=== PATIENT | female | born 1940 | race Caucasian/White ===

== ENCOUNTER → 2017-04-17 | Outpatient (CLI) | payer OTHER ==
[~2017-04-17] MED LIST: ATOR-26 PO; FENO134C2 PO; HYDR25TA5 PO; LOSA25TA18 PO; METO-551 PO; NRV/5 PO; OMEP20CA9 PO
[2017-04-17 08:42] LABS: BASO % 0.5 %; BASO ABS # 0.03 K/uL (0-0.2); COMPLETE YES; EOS % 2.5 %; HEMATOCRIT 33.2 % (37-47); IG% 0.2 %; LYMPH % 48.7 %; LYMPH ABS # 3.06 K/uL (1.2-3.4); MEAN CELL VOLUME 88.5 fL (80-100); MEAN CORPUSCULAR HEMOGLOBIN 30.7 pg (25-34); MEAN CORPUSCULAR HGB CONC 34.6 g/dl (32-36); MEAN PLATELET VOLUME 10.7 fL (7.4-10.4); MONO % 9.7 %; NEUT % 38.4 %; PLATELET COUNT 233 K/uL (130-400); RED BLOOD COUNT 3.75 M/uL (4.2-5.4); WHITE BLOOD COUNT 6.28 K/uL (4.8-10.8)
[2017-04-17 08:57] LABS: ALT/SGPT 22 U/L (12-78); AST/SGOT 13 U/L (15-37); BLOOD UREA NITROGEN 16 mg/dl (7-18); BUN/CREATININE RATIO 21.7 (10-20); CARBON DIOXIDE 27 mmol/L (21-32); CHLORIDE 106 mmol/L (98-107); CHOLESTEROL 146 mg/dl (0-200); CREATININE 0.72 mg/dl (0.60-1.20); GLUCOSE 105 mg/dl (70-99); POTASSIUM 3.7 mmol/L (3.5-5.1); SODIUM 141 mmol/L (136-145); TRIGLYCERIDES 75 mg/dl (0-150); VERY LOW DENSITY LIPOPROT CALC 15 mg/dl
[2017-04-17 08:59] LABS: ALB/GLOB RATIO 1.1 (0.9-2); ALKALINE PHOSPHATASE 49 U/L (45-117); CALCIUM 8.6 mg/dl (8.5-10.1); CHOLESTEROL/HDL RATIO 2.8; HDL CHOLESTEROL 52 mg/dl; LDL CHOLESTEROL CALCULATED 79 mg/dl
[2017-04-17 09:56] LABS: ESTIMATED AVERAGE GLUCOSE 120 mg/dl; HA1C FLAG Normal (Normal)
== END ==
LOC: C.LABCC 08:13
PROVIDERS: ATTEND Internal Medicine
DX: E11.9 Type 2 diabetes mellitus without complications (principal); I10 Essential (primary) hypertension; E78.5 Hyperlipidemia, unspecified

== ENCOUNTER → 2017-08-20 | Outpatient (CLI) | payer OTHER ==
[2017-08-20 08:55] LABS: BASO % 0.4 %; BASO ABS # 0.03 K/uL (0-0.2); COMPLETE YES; EOS % 2.5 %; HEMATOCRIT 33.1 % (37-47); IG% 0.6 %; LYMPH % 41.3 %; LYMPH ABS # 2.99 K/uL (1.2-3.4); MEAN CELL VOLUME 86.4 fL (80-100); MEAN CORPUSCULAR HEMOGLOBIN 30.3 pg (25-34); MEAN PLATELET VOLUME 10.5 fL (7.4-10.4); MONO % 11.2 %; PLATELET COUNT 249 K/uL (130-400); RED BLOOD COUNT 3.83 M/uL (4.2-5.4); WHITE BLOOD COUNT 7.24 K/uL (4.8-10.8)
[2017-08-20 09:02] LABS: BLOOD UREA NITROGEN 12 mg/dl (7-18); BUN/CREATININE RATIO 20.3 (10-20); CALCIUM 9.1 mg/dl (8.5-10.1); CARBON DIOXIDE 27 mmol/L (21-32); CHLORIDE 104 mmol/L (98-107); CREATININE 0.59 mg/dl (0.60-1.20); GLUCOSE 123 mg/dl (70-99); MAGNESIUM 1.8 mg/dl (1.8-2.4); POTASSIUM 3.6 mmol/L (3.5-5.1); SODIUM 140 mmol/L (136-145)
[2017-08-20 09:25] LABS: ESTIMATED AVERAGE GLUCOSE 140 mg/dl; HA1C FLAG Normal (Normal)
== END ==
LOC: C.LABCC 08:32
PROVIDERS: ATTEND Internal Medicine
DX: I10 Essential (primary) hypertension (principal); E11.65 Type 2 diabetes mellitus with hyperglycemia; R63.5 Abnormal weight gain

== ENCOUNTER → 2017-12-22 | Outpatient (CLI) | payer OTHER | LOC: C.LABCC 09:05 | PROVIDERS: ATTEND Internal Medicine | DX: E11.65 Type 2 diabetes mellitus with hyperglycemia (principal) ==

== ENCOUNTER 2021-03-31 02:47 | Inpatient (IN) ==
--- NOTE | 2021-03-31 03:02 | Emergency Department Note ---
Impression & Plan Syncope and collapse, Closed head injury ED Provider Note Name: EVY ALDANA Age: 80 Sex: F Arrives Via: Ambulance Informant: Patient (poor historian), EMS, Nursing ED Provider: Brian Osorio MD Chief Complaint: Syncope Impression: Syncope and Collapse Closed Head Injury Medical Decision Makin yr old female [facility] after reportedly being found unresponsive on the floor after collapse heard by roommate. TTP over posterior right scalp no other acute findings. Patient poor historian, though no reported blood thinner use in the chart. CT head/cervical obtained and negative. CXR/Pelv xray negative. Labs look OK and no evidence of urinary infection. She is not short of breath, no tachy and no hypoxia, with no calf pain/swelling, I have low suspicion of PE. No neuro deficits on arrival to suspect ongoing strok e. With syncope will need further rule out though currently EKG/Trop OK. Hospitalist consulted for further management. Of note, covid 19 testing positive. This patient has already head covid several months ago as well as received both doses of vaccine > 2 months ago. I suspect this is constant positive and not acute infection given no sob, fevers, cough, hypoxia, etc. Prior Medical Record and Triage/Nursing Notes reviewed by Me Additional history obtained from chart and nursing notes Differentials:Vasovagal event, dehydration, infection, hypoglycemia, electrolyte abnormalities, cardiac sources, intracerebral event, pulmonary embolism, seizure, toxicologic, neurologic, as well as other pathologies. Vital Signs: reviewed and remarkable for no significant abnormalities Interventions: None Labs:Reviewed and remarkable for no significant abnormalities Imaging:[facility] Radiologist interpretation reviewed by me: ct head/cervical: No acute findings EKG:Per My Interpretation: Indication Syncope: Sinus Celso 57 bpm, qtc 412. No Ectopy. No Ischemia. Compared to EKG 01/31/16 vague T wave inversions III new. Cardiac/Tele Monitoring: Cardiac Monitoring: An Order was placed for continuous cardiac monitoring. The monitor shows a rate of 60 with a normal sinus rhythm. Consults:Dr Harlan MEMBRENO Hospitalist Plan: Disposition:Hospitalization. Condition: Good History of Present Illness:80 yr old female arrives for evaluation s/p syncope. Patient [facility] where she has been increasingly agitated over the last few days apparently. Tonight she was ambulating around room when fall against the wall striking right side of head. This was reportedly unwitnessed but roommate heard fall and staff contacted. On arrival staff noted patient unresponsive. After sternal rubbing her she eventually awoke and EMS called. Patient notes right headache. Denies neck pain, cp, sob, abdominal pain, extremity pain nor other symptoms. Nothing makes better nor worse. Given Tylenol prior to arrival. No reported aspirin nor blood thinner use. No known bleeding disorder. Patient with dementia and thus history is moderately limited. ROS: See above HPI for pertinent positives & negatives. A total of 10 systems reviewed and were otherwise negative. Past Medical History:HTN, GERD, Dyslipidemia, Dementia, DMII Past Surgical History:Unknown (dementia) Family History:Unknown (dementia) Social History:[facility] Home Medications:see below Allergies:Morphine, Codeine Vitals:Blood Pressure: 204/76, Pulse 62, RR 20, T 36.6C, O2 97% on RA Physical Exam: GENERAL: Patient is elderly appearing and in no acute distress. Slightly confused on history HEAD: TTP without hematoma right posterior scalp EYES: No scleral icterus, unremarkable pupils. ENT: Mucous membranes moist, no nasal congestion. NECK: No masses appreciated, nomeningismus, trachea is midline. RESPIRATORY: No dyspnea. Clear to auscultation and equal bilaterally. No wheeze, no rhonchi. CARDIOVASCULAR: Regular rate and rhythm.No murmurs, rubs, gallops appreciated. GASTROINTESTINAL: Abdomen soft, non-tender, no peritonitis.Bowel sounds positive.No masses appreciated. BACK: No midline tenderness, no CVA tenderness EXTREMITIES: Normal motion all extremities, no cyanosis, no edema. NEUROLOGIC: Alert, dementia, no acute motor or sensory deficits, no focal weakness, cranial nerves grossly intact. SKIN: No rash, no jaundice, no diaphoresis. PSYCH: Appropriate GCS: 15 ED Course: Times/Reassessments: Sleeping soundly. 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 Assistive Devices: None Allergies Allergies Allergy/AdvReac Type Severity Reaction Status Date / Time morphine AdvReac Severe UPSET Verified 03/31/21 03:12 STOMACH codeine AdvReac Mild N/V Verified 03/31/21 03:12 Home Meds Home Medications Medication Instructions Recorded Confirmed acetaminophen 650 mg PO Q12H 03/31/21 03/31/21 acetaminophen 650 mg PO Q6 PRN MDD 3g see 03/31/21 03/31/21 routine order atorvastatin 80 mg PO QPM 03/31/21 03/31/21 fenofibrate nanocrystallized 145 mg PO DAILY 03/31/21 03/31/21 glimepiride 1 mg PO DAILY 03/31/21 03/31/21 losartan 25 mg PO DAILY 03/31/21 03/31/21 metoprolol tartrate 50 mg PO BID 03/31/21 03/31/21 nystatin [Nyamyc] 1 applic TOPICAL QS 03/31/21 03/31/21 omeprazole 20 mg PO BID 03/31/21 03/31/21 pregabalin 75 mg PO BID 03/31/21 03/31/21 valacyclovir 1,000 mg PO TID 03/31/21 03/31/21 Results & Data (ED) Vital Signs Vital Signs - 24 hr 03/31/21 02:50 03/31/21 02:51 03/31/21 04:00 Temperature 36.6 C Temperature Source Temporal Artery Scan Pulse Rate 62 63 58 L Pulse Rate from SpO2 Sensor 59 L 58 L Pulse Rhythm Regular Pulse Strength Normal Respiratory Rate 20 17 14 Respiratory Effort / Characteristics Non-Labored Spontaneous Respiratory Depth Normal Respiratory Pattern Regular Blood Pressure 204/76 H 204/76 H 170/80 H Blood Pressure Mean 118 118 110 Blood Pressure Position Lying Pulse Oximetry 97 99 97 Oxygen Delivery Method Room Air Sepsis Recent Fever Within 48 Hours No Sepsis New/Unexplained Change in Mental Status No Sepsis Action Taken by Nursing No Action Required 03/31/21 04:50 03/31/21 05:09 03/31/21 05:30 Temperature Temperature Source Pulse Rate 48 L 58 L 52 L Pulse Rate from SpO2 Sensor 51 L 58 L 53 L Pulse Rhythm Pulse Strength Respiratory Rate 18 14 16 Respiratory Effort / Characteristics Respiratory Depth Respiratory Pattern Blood Pressure 160/90 H 159/63 H 132/49 L Blood Pressure Mean 113 95 76 Blood Pressure Position Pulse Oximetry 96 97 95 Oxygen Delivery Method Sepsis Recent Fever Within 48 Hours Sepsis New/Unexplained Change in Mental Status Sepsis Action Taken by Nursing 03/31/21 06:01 03/31/21 06:02 03/31/21 06:30 Temperature Temperature Source Pulse Rate 73 83 61 Pulse Rate from SpO2 Sensor 47 L 82 64 Pulse Rhythm Pulse Strength Respiratory Rate 12 20 15 Respiratory Effort / Characteristics Respiratory Depth Respiratory Pattern Blood Pressure 165/81 H 161/74 H Blood Pressure Mean 109 103 Blood Pressure Position Pulse Oximetry 98 98 99 Oxygen Delivery Method Sepsis Recent Fever Within 48 Hours Sepsis New/Unexplained Change in Mental Status Sepsis Action Taken by Nursing 03/31/21 06:31 03/31/21 07:00 03/31/21 07:01 Temperature Temperature Source Pulse Rate 57 L 60 58 L Pulse Rate from SpO2 Sensor 57 L 60 57 L Pulse Rhythm Pulse Strength Respiratory Rate 14 14 15 Respiratory Effort / Characteristics Respiratory Depth Respiratory Pattern Blood Pressure 165/65 H Blood Pressure Mean 98 Blood Pressure Position Pulse Oximetry 97 97 96 Oxygen Delivery Method Sepsis Recent Fever Within 48 Hours Sepsis New/Unexplained Change in Mental Status Sepsis Action Taken by Nursing 03/31/21 07:30 03/31/21 08:00 03/31/21 08:01 Temperature Temperature Source Pulse Rate 54 L 65 70 Pulse Rate from SpO2 Sensor 54 L Pulse Rhythm Pulse Strength Respiratory Rate 16 15 19 Respiratory Effort / Characteristics Respiratory Depth Respiratory Pattern Blood Pressure 161/66 H 176/73 H Blood Pressure Mean 97 107 Blood Pressure Position Pulse Oximetry 96 Oxygen Delivery Method Sepsis Recent Fever Within 48 Hours Sepsis New/Unexplained Change in Mental Status Sepsis Action Taken by Nursing 03/31/21 08:30 Temperature Temperature Source Pulse Rate 58 L Pulse Rate from SpO2 Sensor Pulse Rhythm Pulse Strength Respiratory Rate 16 Respiratory Effort / Characteristics Respiratory Depth Respiratory Pattern Blood Pressure 147/59 H Blood Pressure Mean 88 Blood Pressure Position Pulse Oximetry Oxygen Delivery Method Sepsis Recent Fever Within 48 Hours Sepsis New/Unexplained Change in Mental Status Sepsis Action Taken by Nursing Laboratory Data Result diagrams: 03/31/21 03:52 03/31/21 03:52 Lab Results 03/31/21 03/31/21 03/31/21 Range/Units 03:00 03:00 03:52 WBC Cancelled 7.42 RBC Cancelled 4.03 L Hgb Cancelled 12.0 Hct Cancelled 35.9 L MCV Cancelled 89.1 MCH Cancelled 29.8 MCHC Cancelled 33.4 RDW Std Deviation Cancelled 42.8 RDW Coeff of Batsheva Cancelled 13.2 Plt Count Cancelled 285 MPV Cancelled 10.4 Immature Gran % (Auto) Cancelled 0.5 Neut % (Auto) Cancelled 41.6 Lymph % (Auto) Cancelled 45.8 [place] % (Auto) Cancelled 9.4 Eos % (Auto) Cancelled 2.4 Baso % (Auto) Cancelled 0.3 Neut # (Auto) Cancelled 3.08 Lymph # (Auto) Cancelled 3.40 [place] # (Auto) Cancelled 0.70 H Eos # (Auto) Cancelled 0.18 Baso # (Auto) Cancelled 0.02 Immature Gran # (Auto) Cancelled 0.04 H Absolute Nucleated RBC Cancelled Nucleated RBC % (auto) Cancelled Neutrophils % (Manual) Cancelled Band Neutrophils % Cancelled Lymphocytes % (Manual) Cancelled Prolymphocyte % Cancelled Reactive Lymphs % (Man) Cancelled Monocytes % (Manual) Cancelled Eosinophils % (Manual) Cancelled Basophils % (Manual) Cancelled Metamyelocytes % (Man) Cancelled Myelocytes % (Man) Cancelled Promyelocytes % (Man) Cancelled Blast Cells % (Manual) Cancelled Plasma Cell % (Manual) Cancelled Other Cells % Cancelled Nucleated RBC % Cancelled Neutrophils # (Manual) Cancelled Band Neutrophils # Cancelled Total Absolute Neuts Cancelled Lymphocytes # (Manual) Cancelled Prolymphocyte # Cancelled Reactive Lymphs # Cancelled Total Abs Lymphocytes Cancelled Monocytes # (Manual) Cancelled Eosinophils # (Manual) Cancelled Basophils # (Manual) Cancelled Metamyelocytes # (Man) Cancelled Myelocytes # (Manual) Cancelled Promyelocytes # (Man) Cancelled Blast Cells # (Man) Cancelled Plasma Cell # (Manual) Cancelled Other Cells # Cancelled Nucleated RBCs # (Man) Cancelled Hypersegmented Neuts Cancelled Hyposegmented Neuts Cancelled Hypogranular Neuts Cancelled Large Granular Lymphs Cancelled # Lrg Granular Lymphs Cancelled Hairy Cells Cancelled Smudge Cells Cancelled Toxic Granulation Cancelled Toxic Vacuolation Cancelled Dohle Bodies Cancelled Steven Rods Cancelled Platelet Estimate Cancelled Hypogranular Platelets Cancelled Clumped Platelets Cancelled Giant Platelets Cancelled Platelet Satelliting Cancelled RBC Morphology Cancelled Polychromasia Cancelled Hypochromasia Cancelled Poikilocytosis Cancelled Basophilic Stippling Cancelled Anisocytosis Cancelled Microcytosis Cancelled Macrocytosis Cancelled Spherocytes Cancelled Pappenheimer Bodies Cancelled Sickle Cells Cancelled Target Cells Cancelled Tear Drop Cells Cancelled Ovalocytes Cancelled Stomatocytes Cancelled [place] Bodies Cancelled Echinocytes Cancelled Acanthocytes (Spur) Cancelled Rouleaux Cancelled RBC Agglutinates Cancelled Schistocytes Cancelled RBC Morph Comment Cancelled Sezary Cell Cancelled Sodium 141 (136-145) mmol/L Potassium (3.5-5.1) mmol/L Chloride 110 H (98-107) mmol/L Carbon Dioxide 25 (21-32) mmol/L Anion Gap 6.0 (3-11) BUN 19 H (7-18) mg/dl Creatinine 0.82 (0.6-1.2) mg/dl Est Cr Clr Drug Dosing 50.1 ml/min Est GFR ( Amer) 77.2 ml/min Est GFR (Non-Af Amer) 66.6 ml/min BUN/Creatinine Ratio 22.9 H (10-20) Glucose 127 H (70-99) mg/dl Calcium 9.1 (8.5-10.1) mg/dl Magnesium (1.8-2.4) mg/dl Total Bilirubin 0.4 (0.2-1) mg/dl Direct Bilirubin (0-0.2) mg/dl AST (15-37) U/L ALT 25 (12-78) U/L Alkaline Phosphatase 55 (45-117) U/L Troponin I < 0.015 (0-0.045) ng/ml Total Protein 7.5 (6.4-8.2) gm/dl Albumin 3.5 (3.4-5.0) gm/dl Lipase 122 (73-393) U/L Urine Color Urine Appearance (Clear) Urine pH (4.5-7.5) Ur Specific [place] (1.000-1.030) Urine Protein (Negative) Urine Glucose (UA) (Negative) Urine Ketones (Negative) Urine Blood (Negative) Urine Nitrite (Negative) Urine Bilirubin (Negative) Urine Urobilinogen (Negative) Ur Leukocyte Esterase (Negative) Urine WBC (Auto) (0-5) /hpf Urine RBC (Auto) (0-4) /hpf U Hyaline Cast (Auto) (0-5) /lpf U Epithel Cells (Auto) (0-5) /lpf Urine Bacteria (Auto) (Negative) COVID-19 Eval Order SARS-CoV-2 (PCR) (Negative) 03/31/21 03/31/21 03/31/21 Range/Units 03:52 05:00 06:00 WBC RBC Hgb Hct MCV MCH MCHC RDW Std Deviation RDW Coeff of Batsheva Plt Count MPV Immature Gran % (Auto) Neut % (Auto) Lymph % (Auto) [place] % (Auto) Eos % (Auto) Baso % (Auto) Neut # (Auto) Lymph # (Auto) [place] # (Auto) Eos # (Auto) Baso # (Auto) Immature Gran # (Auto) Absolute Nucleated RBC Nucleated RBC % (auto) Neutrophils % (Manual) Band Neutrophils % Lymphocytes % (Manual) Prolymphocyte % Reactive Lymphs % (Man) Monocytes % (Manual) Eosinophils % (Manual) Basophils % (Manual) Metamyelocytes % (Man) Myelocytes % (Man) Promyelocytes % (Man) Blast Cells % (Manual) Plasma Cell % (Manual) Other Cells % Nucleated RBC % Neutrophils # (Manual) Band Neutrophils # Total Absolute Neuts Lymphocytes # (Manual) Prolymphocyte # Reactive Lymphs # Total Abs Lymphocytes Monocytes # (Manual) Eosinophils # (Manual) Basophils # (Manual) Metamyelocytes # (Man) Myelocytes # (Manual) Promyelocytes # (Man) Blast Cells # (Man) Plasma Cell # (Manual) Other Cells # Nucleated RBCs # (Man) Hypersegmented Neuts Hyposegmented Neuts Hypogranular Neuts Large Granular Lymphs # Lrg Granular Lymphs Hairy Cells Smudge Cells Toxic Granulation Toxic Vacuolation Dohle Bodies Steven Rods Platelet Estimate Hypogranular Platelets Clumped Platelets Giant Platelets Platelet Satelliting RBC Morphology Polychromasia Hypochromasia Poikilocytosis Basophilic Stippling Anisocytosis Microcytosis Macrocytosis Spherocytes Pappenheimer Bodies Sickle Cells Target Cells Tear Drop Cells Ovalocytes Stomatocytes Parada-Corral[place] Bodies Echinocytes Acanthocytes (Spur) Rouleaux RBC Agglutinates Schistocytes RBC Morph Comment Sezary Cell Sodium (136-145) mmol/L Potassium 3.9 (3.5-5.1) mmol/L Chloride (98-107) mmol/L Carbon Dioxide (21-32) mmol/L Anion Gap (3-11) BUN (7-18) mg/dl Creatinine (0.6-1.2) mg/dl Est Cr Clr Drug Dosing ml/min Est GFR ( Amer) ml/min Est GFR (Non-Af Amer) ml/min BUN/Creatinine Ratio (10-20) Glucose (70-99) mg/dl Calcium (8.5-10.1) mg/dl Magnesium 2.2 (1.8-2.4) mg/dl Total Bilirubin (0.2-1) mg/dl Direct Bilirubin 0.1 (0-0.2) mg/dl AST 17 (15-37) U/L ALT (12-78) U/L Alkaline Phosphatase (45-117) U/L Troponin I (0-0.045) ng/ml Total Protein (6.4-8.2) gm/dl Albumin (3.4-5.0) gm/dl Lipase (73-393) U/L Urine Color Yellow Urine Appearance Clear (Clear) Urine pH 5.0 (4.5-7.5) Ur Specific [place] 1.022 (1.000-1.030) Urine Protein Negative (Negative) Urine Glucose (UA) Negative (Negative) Urine Ketones Negative (Negative) Urine Blood Negative (Negative) Urine Nitrite Negative (Negative) Urine Bilirubin Negative (Negative) Urine Urobilinogen Negative (Negative) Ur Leukocyte Esterase Trace H (Negative) Urine WBC (Auto) 1-5 (0-5) /hpf Urine RBC (Auto) 0-4 (0-4) /hpf U Hyaline Cast (Auto) 1-5 (0-5) /lpf U Epithel Cells (Auto) >30 H (0-5) /lpf Urine Bacteria (Auto) Negative (Negative) COVID-19 Eval Order Covid19 at [facility] SARS-CoV-2 (PCR) (Negative) 03/31/21 Range/Units 06:00 WBC RBC Hgb Hct MCV MCH MCHC RDW Std Deviation RDW Coeff of Batsheva Plt Count MPV Immature Gran % (Auto) Neut % (Auto) Lymph % (Auto) [place] % (Auto) Eos % (Auto) Baso % (Auto) Neut # (Auto) Lymph # (Auto) [place] # (Auto) Eos # (Auto) Baso # (Auto) Immature Gran # (Auto) Absolute Nucleated RBC Nucleated RBC % (auto) Neutrophils % (Manual) Band Neutrophils % Lymphocytes % (Manual) Prolymphocyte % Reactive Lymphs % (Man) Monocytes % (Manual) Eosinophils % (Manual) Basophils % (Manual) Metamyelocytes % (Man) Myelocytes % (Man) Promyelocytes % (Man) Blast Cells % (Manual) Plasma Cell % (Manual) Other Cells % Nucleated RBC % Neutrophils # (Manual) Band Neutrophils # Total Absolute Neuts Lymphocytes # (Manual) Prolymphocyte # Reactive Lymphs # Total Abs Lymphocytes Monocytes # (Manual) Eosinophils # (Manual) Basophils # (Manual) Metamyelocytes # (Man) Myelocytes # (Manual) Promyelocytes # (Man) Blast Cells # (Man) Plasma Cell # (Manual) Other Cells # Nucleated RBCs # (Man) Hypersegmented Neuts Hyposegmented Neuts Hypogranular Neuts Large Granular Lymphs # Lrg Granular Lymphs Hairy Cells Smudge Cells Toxic Granulation Toxic Vacuolation Dohle Bodies Steven Rods Platelet Estimate Hypogranular Platelets Clumped Platelets Giant Platelets Platelet Satelliting RBC Morphology Polychromasia Hypochromasia Poikilocytosis Basophilic Stippling Anisocytosis Microcytosis Macrocytosis Spherocytes Pappenheimer Bodies Sickle Cells Target Cells Tear Drop Cells Ovalocytes Stomatocytes Parada-Corrales Bodies Echinocytes Acanthocytes (Spur) Rouleaux RBC Agglutinates Schistocytes RBC Morph Comment Sezary Cell Sodium (136-145) mmol/L Potassium (3.5-5.1) mmol/L Chloride (98-107) mmol/L Carbon Dioxide (21-32) mmol/L Anion Gap (3-11) BUN (7-18) mg/dl Creatinine (0.6-1.2) mg/dl Est Cr Clr Drug Dosing ml/min Est GFR ( Amer) ml/min Est GFR (Non-Af Amer) ml/min BUN/Creatinine Ratio (10-20) Glucose (70-99) mg/dl Calcium (8.5-10.1) mg/dl Magnesium (1.8-2.4) mg/dl Total Bilirubin (0.2-1) mg/dl Direct Bilirubin (0-0.2) mg/dl AST (15-37) U/L ALT (12-78) U/L Alkaline Phosphatase (45-117) U/L Troponin I (0-0.045) ng/ml Total Protein (6.4-8.2) gm/dl Albumin (3.4-5.0) gm/dl Lipase (73-393) U/L Urine Color Urine Appearance (Clear) Urine pH (4.5-7.5) Ur Specific [place] (1.000-1.030) Urine Protein (Negative) Urine Glucose (UA) (Negative) Urine Ketones (Negative) Urine Blood (Negative) Urine Nitrite (Negative) Urine Bilirubin (Negative) Urine Urobilinogen (Negative) Ur Leukocyte Esterase (Negative) Urine WBC (Auto) (0-5) /hpf Urine RBC (Auto) (0-4) /hpf U Hyaline Cast (Auto) (0-5) /lpf U Epithel Cells (Auto) (0-5) /lpf Urine Bacteria (Auto) (Negative) COVID-19 Eval Order SARS-CoV-2 (PCR) POSITIVE A* (Negative) Administered Medications Atorvastatin Calcium (Atorvastatin 40 Mg Tab) 80 mg PO QPM JERAMY Stop: 04/30/21 20:59 Last Admin: 03/31/21 20:57 Dose: 80 mg Documented by: [id number] Fenofibrate (Fenofibrate Nanocrystallized 145 Mg Tablet) 145 mg PO DAILY JERAMY Stop: 04/30/21 09:50 Last Admin: 03/31/21 10:42 Dose: 145 mg Documented by: [id number] Insulin Aspart (Insulin Aspart 100 Units/Ml 3 Ml Pen) 0 units SC ACHS JERAMY Stop: 04/30/21 11:29 Last Admin: 03/31/21 21:20 Dose: Not Given Documented by: [id number] Cosigned by: [id number] Admin: 03/31/21 17:00 Dose: Not Given Documented by: [id number] Cosigned by: [id number] Admin: 03/31/21 10:49 Dose: Not Given Documented by: [id number] Lidocaine (Lidocaine 5% 1 Patch) 1 patch TD QAM JERAMY Stop: 04/30/21 08:59 Last Admin: 03/31/21 10:43 Dose: 1 patch Documented by: [id number] Losartan Potassium (Losartan Potassium 25 Mg Tab) 25 mg PO DAILY JERAMY Stop: 04/30/21 09:50 Last Admin: 03/31/21 10:41 Dose: 25 mg Documented by: [id number] Metoprolol Tartrate (Metoprolol Tartrate 50 Mg Tab) 50 mg PO BID JERAMY Stop: 04/30/21 09:50 Last Admin: 03/31/21 20:57 Dose: 50 mg Documented by: [id number] Admin: 03/31/21 10:41 Dose: 50 mg Documented by: [id number] Miscellaneous (Remove Lidoderm Patch) 1 ea N/A DAILY@2100 JERAMY Stop: 04/30/21 20:59 Last Admin: 03/31/21 20:58 Dose: Not Given Documented by: [id number] Pantoprazole Sodium (Pantoprazole 40 Mg Tab) 40 mg PO BID JERAMY Stop: 04/30/21 20:59 Last Admin: 03/31/21 20:57 Dose: 40 mg Documented by: [id number] Pregabalin (Pregabalin 75 Mg Cap) 75 mg PO BID JERAMY Stop: 04/30/21 09:50 Last Admin: 03/31/21 20:57 Dose: 75 mg Documented by: [id number] Admin: 03/31/21 10:57 Dose: 75 mg Documented by: [id number] Valacyclovir HCl (Valacyclovir Hcl 500 Mg Tablet) 1,000 mg PO TID JERAMY Stop: 04/03/21 09:50 Last Admin: 03/31/21 20:57 Dose: 1,000 mg Documented by: [id number] Admin: 03/31/21 13:20 Dose: 1,000 mg Documented by: [id number] Admin: 03/31/21 10:40 Dose: 1,000 mg Documented by: [id number] Discharge Plan Visit Data Chief Complaint: Fall Stated Complaint: FALL w/ LOC ED Provider: Brian Osorio Discharge Problem: Syncope and collapse, Closed head injury Patient Disposition: Admitted As Inpatient Discharge Instructions Interventions: ED Discharge Assessment Last Done: 03/31/21 09:28 Discharge Problem: Closed head injury Qualifiers: Encounter type: initial encounter Qualified Code(s): S09.90XA - Unspecified injury of head, initial encounter
[2021-03-31 03:41] LABS: Alanine Aminotransferase 25 U/L (12-78); Albumin Level 3.5 gm/dl (3.4-5.0); BUN Creatinine Ratio 22.9 (10-20); Blood Urea Nitrogen 19 mg/dl (7-18); Calcium 9.1 mg/dl (8.5-10.1); Carbon Dioxide 25 mmol/L (21-32); Chloride 110 mmol/L (98-107); Creatinine Clr Calc Pharmacy 50.1 ml/min; Est GFR (African American) 77.2 ml/min; Est GFR (Non-African American) 66.6 ml/min; Glucose 127 mg/dl (70-99); Lipase 122 U/L (73-393); Sodium 141 mmol/L (136-145)
[2021-03-31 03:45] LABS: Alkaline Phosphatase 55 U/L (45-117); Bilirubin,Total 0.4 mg/dl (0.2-1); Total Protein 7.5 gm/dl (6.4-8.2); Troponin I < 0.015 ng/ml (0-0.045)
[2021-03-31 04:06] LABS: Basophils # (auto) 0.02 K/uL (0-0.2); Basophils % (auto) 0.3 %; Eosinophils # (auto) 0.18 K/uL (0-0.5); Eosinophils % (auto) 2.4 %; Hematocrit (blood only) 35.9 % (37-47); Immature Granulocytes # (auto) 0.04 K/uL (0.00-0.02); Immature Granulocytes % (auto) 0.5 %; Lymphocytes % (auto) 45.8 %; Mean Corpuscular Hemoglobin 29.8 pg (25-34); Mean Corpuscular Hgb Conc 33.4 g/dL (32-36); Mean Corpuscular Volume 89.1 fL (80-100); Mean Platelet Volume 10.4 fL (7.4-10.4); Monocytes % (auto) 9.4 %; Neutrophils # (auto) 3.08 K/uL (1.4-6.5); Neutrophils % (auto) 41.6 %; Platelet Count 285 K/uL (130-400); RDW Coefficient of Variation 13.2 % (11.5-14.5); RDW Standard Deviation 42.8 fL (36.4-46.3); Red Blood Count 4.03 M/uL (4.2-5.4); White Blood Count 7.42 K/uL (4.8-10.8)
[2021-03-31 04:18] LABS: Potassium 3.9 mmol/L (3.5-5.1)
[2021-03-31 04:23] LABS: Bilirubin Direct 0.1 mg/dl (0-0.2); Magnesium 2.2 mg/dl (1.8-2.4)
[2021-03-31 06:22] LABS: Appearance Urine Clear (Clear); Bacteria Urine Automated Negative (Negative); Bilirubin Urine Negative (Negative); Blood Urine Negative (Negative); Color Urine Yellow; Epithelial Cell Urine Auto >30 /lpf (0-5); Glucose Urine UA Negative (Negative); Ketones Urine Negative (Negative); Leukocyte Esterase Urine Trace (Negative); Nitrite Urine Negative (Negative); Protein Urine Negative (Negative); RBC Urine Automated 0-4 /hpf (0-4); Specific Gravity Urine 1.022 (1.000-1.030); Urobilinogen Urine Negative (Negative)
--- NOTE | 2021-03-31 07:41 | XRay Report ---
XR pelvis 1-2V routine HISTORY: 80 years-old Female fall, trauma acute pelvic pain status post fall COMPARISON: None TECHNIQUE: Portable AP view of the pelvis FINDINGS: Demineralized appearance the bones. Moderate osteoarthritis of the hips. No acute fracture, dislocati on or avascular necrosis. No opaque foreign body. IMPRESSION: No acute fracture or dislocation. ACT 112: Negative or not required by law. The above report was generated using voice recognition software. It may contain grammatical, syntax o r spelling errors. Electronically signed by: Lester Lopez M.D. 03/31/2021 7:40 AM
--- NOTE | 2021-03-31 07:58 | XRay Report ---
XR chest 1V portable HISTORY: 80 years-old Female fall, trauma acute chest trauma status post fall COMPARISON: Chest radiograph 01/31/2016 TECHNIQUE: Portable AP view of the chest FINDINGS: Cardiac silhouette is enlarged. Calcified plaque of the thoracic aorta. No pneumothorax, large pleura l effusion or overt pulmonary edema. Mild bibasilar atelectasis. Degenerative changes of the shoulder s and spine. IMPRESSION: Cardiomegaly without acute process. ACT 112: Negative or not required by law. The above report was generated using voice recognition software. It may contain grammatical, syntax o r spelling errors. Electronically signed by: Lester Lopez M.D. 03/31/2021 7:57 AM
--- NOTE | 2021-03-31 07:58 | History & Physical Report ---
Date of Service March 31, 2021 Assessment & Plan (1) Syncope and collapse: Possible vasovagal syncope vs mechanical fall with LOC from head trauma- was unwitnessed but had period of unresponsiveness Check ECHO, serial troponin. follow on tele ECG here normal, SB PT/POT otherwise no signs of infection or metabolic derangement CT head neg (2) Closed head injury: has mild BURCIAGA but CT head and neck neg (3) Dementia: moderate-severe supportive care (4) Diabetes mellitus: HgbA1C only 5.5% in 01/2021 most likely won't need SSI (5) GERD (gastroesophageal reflux disease): continue PPI bid (6) Hyperlipidemia: continue statin (7) HTN (hypertension), benign: BPs controlled continue losartan and metoprolol (8) Fall: as above no other injuries (9) Shingles: being treated for this currently-could not find the rash on admission exam (10) Thoracic compression fracture: Thoraic cspine xrays: IMPRESSION: 1. Age-indeterminate superior endplate compression deformity involves a midthoracic segment which appears to be T6. Correlate with point tenderness to exclude an acute fracture. 2. Subacute versus chronic fracture of the lateral left fifth rib. T6 compression deformity, with pain on exam -start lidocaine patch tylenol prn (11) DVT prophylaxis: Juan GUTHRIE Dispo-bring in on observation, likely dc to [place] tomorrow PT/OT consults History of Present Illness Chief Complaint: Fall, unresponsive Primary Care Provider: [facility] This patient is an 80-year-old female with a history of dementia, DM 2, hyperli pidemia, HTN, GERD/PUD who is a resident of the detention [facility] who presents to the ER after an unwitnessed fall was heard by the patient's roommate and the patient was thought to have hit her right side of the head on the wall and then was found on the ground unresponsive. Apparently nursing staff sternally rubbed her and eventually she woke up. Reports from the detention also state that she had been acting a little bit more agitated than usual the last couple of days. History was difficult as the patient has dementia but she tells me she has no recollection of any events leading up to her being in the hospital. She does know she's in the hospital. SHe reports a posterior headache and some pain in the neck. Denies pain anywhere else. In the ER, she did not have any ongoing neurological deficits and stroke was not suspected. She had a CT of the head and cervical spine, chest x-ray and pelvis x-ray which were all negative. There is no evidence of UTI or metabolic abnormalities or anemia on laboratory work-up. She will be admitted for fall mechanical versus vasovagal syncope resulting in closed head trauma with loss of consciousness. Allergies Allergy/AdvReac Type Severity Reaction Status Date / Time morphine AdvReac Severe UPSET Verified 03/31/21 03:12 STOMACH codeine AdvReac Mild N/V Verified 03/31/21 03:12 Home Medications Medication Instructions Recorded Confirmed Type acetaminophen 650 mg PO Q12H 03/31/21 03/31/21 History acetaminophen 650 mg PO Q6 PRN MDD 3g see 03/31/21 03/31/21 History routine order atorvastatin 80 mg PO QPM 03/31/21 03/31/21 History fenofibrate nanocrystallized 145 mg PO DAILY 03/31/21 03/31/21 History glimepiride 1 mg PO DAILY 03/31/21 03/31/21 History losartan 25 mg PO DAILY 03/31/21 03/31/21 History metoprolol tartrate 50 mg PO BID 03/31/21 03/31/21 History nystatin [Nyamyc] 1 applic TOPICAL QS 03/31/21 03/31/21 History omeprazole 20 mg PO BID 03/31/21 03/31/21 History pregabalin 75 mg PO BID 03/31/21 03/31/21 History valacyclovir 1,000 mg PO TID 03/31/21 03/31/21 History Past Med/Surg History Medical History (Updated 04/01/21 @ 00:13 by Melissa Claros MD) Dementia Diabetes mellitus GERD (gastroesophageal reflux disease) HTN (hypertension), benign Hyperlipidemia Surgical History (Updated 04/01/21 @ 00:00 by Melissa Claros MD) H/O dilation and curettage H/O: hysterectomy S/P rotator cuff repair Family History Other Family history non-contributory Social History Smoking Status: Unknown if ever smoked Hx Alcohol Use: No Hx Substance Use: No Preferred Language: [place] Required: No Beliefs That Will Affect Care: Yarsani Yarsani Beliefs: Christianity [facility] Roman Catholic Current Living Situation: Personal Care Facility Current Living Situation Comment: Patient resides at [facility]. Assistive Devices: None Review of Systems Review of Systems: All systems reviewed & are unremarkable except as noted in HPI & below Physical Exam Constitutional: WD/WN, vitals as above Eyes: PERRL, conjunctivae normal, anicteric sclerae ENMT: external ear and nose normal, oropharynx normal Neck: trachea midline, no thyromegaly Respiratory: normal respiratory effort, lungs clear to auscultation Cardiovascular: RRR, no murmur, no edema Chest (Breasts): Chest: normal inspection of chest Gastrointestinal (Abdomen): normal bowel sounds, soft, nontender, no hepatosplenomegaly Musculoskeletal: Spine: + thoracic spinal tenderness (over T6-7 region ) Extremities: extremities normal to inspection; no cyanosis and no clubbing Skin: no rashes, warm and dry Neurologic: moves all extremities and awake; no focal motor deficits Psychiatric: Orientation: alert, oriented to person, oriented to place and cooperative Affect: euthymic affect Lymphatic: no lymphedema Results & Data Results & Data ([facility]) Vital Signs (Past 12 Hours) Vital Signs Temp Pulse Resp BP Pulse Ox 03/31/21 06:01 73 12 165/81 H 98 03/31/21 05:30 52 L 16 132/49 L 95 03/31/21 05:09 58 L 14 159/63 H 97 03/31/21 04:50 48 L 18 160/90 H 96 03/31/21 04:00 58 L 14 170/80 H 97 03/31/21 02:51 63 17 204/76 H 99 03/31/21 02:50 36.6 C 62 20 204/76 H 97 Laboratory Results 03/31/21 03/31/21 03/31/21 Range/Units 06:00 06:00 05:00 WBC RBC Hgb Hct MCV MCH MCHC RDW Std Deviation RDW Coeff of Batsheva Plt Count MPV Immature Gran % (Auto) Neut % (Auto) Lymph % (Auto) [place] % (Auto) Eos % (Auto) Baso % (Auto) Neut # (Auto) Lymph # (Auto) [place] # (Auto) Eos # (Auto) Baso # (Auto) Immature Gran # (Auto) Absolute Nucleated RBC Nucleated RBC % (auto) Neutrophils % (Manual) Band Neutrophils % Lymphocytes % (Manual) Prolymphocyte % Reactive Lymphs % (Man) Monocytes % (Manual) Eosinophils % (Manual) Basophils % (Manual) Metamyelocytes % (Man) Myelocytes % (Man) Promyelocytes % (Man) Blast Cells % (Manual) Plasma Cell % (Manual) Other Cells % Nucleated RBC % Neutrophils # (Manual) Band Neutrophils # Total Absolute Neuts Lymphocytes # (Manual) Prolymphocyte # Reactive Lymphs # Total Abs Lymphocytes Monocytes # (Manual) Eosinophils # (Manual) Basophils # (Manual) Metamyelocytes # (Man) Myelocytes # (Manual) Promyelocytes # (Man) Blast Cells # (Man) Plasma Cell # (Manual) Other Cells # Nucleated RBCs # (Man) Hypersegmented Neuts Hyposegmented Neuts Hypogranular Neuts Large Granular Lymphs # Lrg Granular Lymphs Hairy Cells Smudge Cells Toxic Granulation Toxic Vacuolation Dohle Bodies Steven Rods Platelet Estimate Hypogranular Platelets Clumped Platelets Giant Platelets Platelet Satelliting RBC Morphology Polychromasia Hypochromasia Poikilocytosis Basophilic Stippling Anisocytosis Microcytosis Macrocytosis Spherocytes Pappenheimer Bodies Sickle Cells Target Cells Tear Drop Cells Ovalocytes Stomatocytes [place] Bodies Echinocytes Acanthocytes (Spur) Rouleaux RBC Agglutinates Schistocytes RBC Morph Comment Sezary Cell Sodium (136-145) mmol/L Potassium (3.5-5.1) mmol/L Chloride (98-107) mmol/L Carbon Dioxide (21-32) mmol/L Anion Gap (3-11) BUN (7-18) mg/dl Creatinine (0.6-1.2) mg/dl Est Cr Clr Drug Dosing ml/min Est GFR ( Amer) ml/min Est GFR (Non-Af Amer) ml/min BUN/Creatinine Ratio (10-20) Glucose (70-99) mg/dl Calcium (8.5-10.1) mg/dl Magnesium (1.8-2.4) mg/dl Total Bilirubin (0.2-1) mg/dl Direct Bilirubin (0-0.2) mg/dl AST (15-37) U/L ALT (12-78) U/L Alkaline Phosphatase (45-117) U/L Troponin I (0-0.045) ng/ml Total Protein (6.4-8.2) gm/dl Albumin (3.4-5.0) gm/dl Lipase (73-393) U/L Urine Color Yellow Urine Appearance Clear (Clear) Urine pH 5.0 (4.5-7.5) Ur Specific [place] 1.022 (1.000-1.030) Urine Protein Negative (Negative) Urine Glucose (UA) Negative (Negative) Urine Ketones Negative (Negative) Urine Blood Negative (Negative) Urine Nitrite Negative (Negative) Urine Bilirubin Negative (Negative) Urine Urobilinogen Negative (Negative) Ur Leukocyte Esterase Trace H (Negative) Urine WBC (Auto) 1-5 (0-5) /hpf Urine RBC (Auto) 0-4 (0-4) /hpf U Hyaline Cast (Auto) 1-5 (0-5) /lpf U Epithel Cells (Auto) >30 H (0-5) /lpf Urine Bacteria (Auto) Negative (Negative) COVID-19 Eval Order Covid19 at [facility] SARS-CoV-2 (PCR) POSITIVE A* (Negative) 03/31/21 03/31/21 03/31/21 Range/Units 03:52 03:52 03:00 WBC 7.42 RBC 4.03 L Hgb 12.0 Hct 35.9 L MCV 89.1 MCH 29.8 MCHC 33.4 RDW Std Deviation 42.8 RDW Coeff of Batsheva 13.2 Plt Count 285 MPV 10.4 Immature Gran % (Auto) 0.5 Neut % (Auto) 41.6 Lymph % (Auto) 45.8 [place]enton % (Auto) 9.4 Eos % (Auto) 2.4 Baso % (Auto) 0.3 Neut # (Auto) 3.08 Lymph # (Auto) 3.40 Benton # (Auto) 0.70 H Eos # (Auto) 0.18 Baso # (Auto) 0.02 Immature Gran # (Auto) 0.04 H Absolute Nucleated RBC Nucleated RBC % (auto) Neutrophils % (Manual) Band Neutrophils % Lymphocytes % (Manual) Prolymphocyte % Reactive Lymphs % (Man) Monocytes % (Manual) Eosinophils % (Manual) Basophils % (Manual) Metamyelocytes % (Man) Myelocytes % (Man) Promyelocytes % (Man) Blast Cells % (Manual) Plasma Cell % (Manual) Other Cells % Nucleated RBC % Neutrophils # (Manual) Band Neutrophils # Total Absolute Neuts Lymphocytes # (Manual) Prolymphocyte # Reactive Lymphs # Total Abs Lymphocytes Monocytes # (Manual) Eosinophils # (Manual) Basophils # (Manual) Metamyelocytes # (Man) Myelocytes # (Manual) Promyelocytes # (Man) Blast Cells # (Man) Plasma Cell # (Manual) Other Cells # Nucleated RBCs # (Man) Hypersegmented Neuts Hyposegmented Neuts Hypogranular Neuts Large Granular Lymphs # Lrg Granular Lymphs Hairy Cells Smudge Cells Toxic Granulation Toxic Vacuolation Dohle Bodies Steven Rods Platelet Estimate Hypogranular Platelets Clumped Platelets Giant Platelets Platelet Satelliting RBC Morphology Polychromasia Hypochromasia Poikilocytosis Basophilic Stippling Anisocytosis Microcytosis Macrocytosis Spherocytes Pappenheimer Bodies Sickle Cells Target Cells Tear Drop Cells Ovalocytes Stomatocytes [place] Bodies Echinocytes Acanthocytes (Spur) Rouleaux RBC Agglutinates Schistocytes RBC Morph Comment Sezary Cell Sodium 141 (136-145) mmol/L Potassium 3.9 (3.5-5.1) mmol/L Chloride 110 H (98-107) mmol/L Carbon Dioxide 25 (21-32) mmol/L Anion Gap 6.0 (3-11) BUN 19 H (7-18) mg/dl Creatinine 0.82 (0.6-1.2) mg/dl Est Cr Clr Drug Dosing 50.1 ml/min Est GFR ( Amer) 77.2 ml/min Est GFR (Non-Af Amer) 66.6 ml/min BUN/Creatinine Ratio 22.9 H (10-20) Glucose 127 H (70-99) mg/dl Calcium 9.1 (8.5-10.1) mg/dl Magnesium 2.2 (1.8-2.4) mg/dl Total Bilirubin 0.4 (0.2-1) mg/dl Direct Bilirubin 0.1 (0-0.2) mg/dl AST 17 (15-37) U/L ALT 25 (12-78) U/L Alkaline Phosphatase 55 (45-117) U/L Troponin I < 0.015 (0-0.045) ng/ml Total Protein 7.5 (6.4-8.2) gm/dl Albumin 3.5 (3.4-5.0) gm/dl Lipase 122 (73-393) U/L Urine Color Urine Appearance (Clear) Urine pH (4.5-7.5) Ur Specific [place] (1.000-1.030) Urine Protein (Negative) Urine Glucose (UA) (Negative) Urine Ketones (Negative) Urine Blood (Negative) Urine Nitrite (Negative) Urine Bilirubin (Negative) Urine Urobilinogen (Negative) Ur Leukocyte Esterase (Negative) Urine WBC (Auto) (0-5) /hpf Urine RBC (Auto) (0-4) /hpf U Hyaline Cast (Auto) (0-5) /lpf U Epithel Cells (Auto) (0-5) /lpf Urine Bacteria (Auto) (Negative) COVID-19 Eval Order SARS-CoV-2 (PCR) (Negative) 03/31/21 Range/Units 03:00 WBC Cancelled RBC Cancelled Hgb Cancelled Hct Cancelled MCV Cancelled MCH Cancelled MCHC Cancelled RDW Std Deviation Cancelled RDW Coeff of Batsheva Cancelled Plt Count Cancelled MPV Cancelled Immature Gran % (Auto) Cancelled Neut % (Auto) Cancelled Lymph % (Auto) Cancelled [place] % (Auto) Cancelled Eos % (Auto) Cancelled Baso % (Auto) Cancelled Neut # (Auto) Cancelled Lymph # (Auto) Cancelled [place] # (Auto) Cancelled Eos # (Auto) Cancelled Baso # (Auto) Cancelled Immature Gran # (Auto) Cancelled Absolute Nucleated RBC Cancelled Nucleated RBC % (auto) Cancelled Neutrophils % (Manual) Cancelled Band Neutrophils % Cancelled Lymphocytes % (Manual) Cancelled Prolymphocyte % Cancelled Reactive Lymphs % (Man) Cancelled Monocytes % (Manual) Cancelled Eosinophils % (Manual) Cancelled Basophils % (Manual) Cancelled Metamyelocytes % (Man) Cancelled Myelocytes % (Man) Cancelled Promyelocytes % (Man) Cancelled Blast Cells % (Manual) Cancelled Plasma Cell % (Manual) Cancelled Other Cells % Cancelled Nucleated RBC % Cancelled Neutrophils # (Manual) Cancelled Band Neutrophils # Cancelled Total Absolute Neuts Cancelled Lymphocytes # (Manual) Cancelled Prolymphocyte # Cancelled Reactive Lymphs # Cancelled Total Abs Lymphocytes Cancelled Monocytes # (Manual) Cancelled Eosinophils # (Manual) Cancelled Basophils # (Manual) Cancelled Metamyelocytes # (Man) Cancelled Myelocytes # (Manual) Cancelled Promyelocytes # (Man) Cancelled Blast Cells # (Man) Cancelled Plasma Cell # (Manual) Cancelled Other Cells # Cancelled Nucleated RBCs # (Man) Cancelled Hypersegmented Neuts Cancelled Hyposegmented Neuts Cancelled Hypogranular Neuts Cancelled Large Granular Lymphs Cancelled # Lrg Granular Lymphs Cancelled Hairy Cells Cancelled Smudge Cells Cancelled Toxic Granulation Cancelled Toxic Vacuolation Cancelled Dohle Bodies Cancelled Steven Rods Cancelled Platelet Estimate Cancelled Hypogranular Platelets Cancelled Clumped Platelets Cancelled Giant Platelets Cancelled Platelet Satelliting Cancelled RBC Morphology Cancelled Polychromasia Cancelled Hypochromasia Cancelled Poikilocytosis Cancelled Basophilic Stippling Cancelled Anisocytosis Cancelled Microcytosis Cancelled Macrocytosis Cancelled Spherocytes Cancelled Pappenheimer Bodies Cancelled Sickle Cells Cancelled Target Cells Cancelled Tear Drop Cells Cancelled Ovalocytes Cancelled Stomatocytes Cancelled [place] Bodies Cancelled Echinocytes Cancelled Acanthocytes (Spur) Cancelled Rouleaux Cancelled RBC Agglutinates Cancelled Schistocytes Cancelled RBC Morph Comment Cancelled Sezary Cell Cancelled Sodium (136-145) mmol/L Potassium (3.5-5.1) mmol/L Chloride (98-107) mmol/L Carbon Dioxide (21-32) mmol/L Anion Gap (3-11) BUN (7-18) mg/dl Creatinine (0.6-1.2) mg/dl Est Cr Clr Drug Dosing ml/min Est GFR ( Amer) ml/min Est GFR (Non-Af Amer) ml/min BUN/Creatinine Ratio (10-20) Glucose (70-99) mg/dl Calcium (8.5-10.1) mg/dl Magnesium (1.8-2.4) mg/dl Total Bilirubin (0.2-1) mg/dl Direct Bilirubin (0-0.2) mg/dl AST (15-37) U/L ALT (12-78) U/L Alkaline Phosphatase (45-117) U/L Troponin I (0-0.045) ng/ml Total Protein (6.4-8.2) gm/dl Albumin (3.4-5.0) gm/dl Lipase (73-393) U/L Urine Color Urine Appearance (Clear) Urine pH (4.5-7.5) Ur Specific [place] (1.000-1.030) Urine Protein (Negative) Urine Glucose (UA) (Negative) Urine Ketones (Negative) Urine Blood (Negative) Urine Nitrite (Negative) Urine Bilirubin (Negative) Urine Urobilinogen (Negative) Ur Leukocyte Esterase (Negative) Urine WBC (Auto) (0-5) /hpf Urine RBC (Auto) (0-4) /hpf U Hyaline Cast (Auto) (0-5) /lpf U Epithel Cells (Auto) (0-5) /lpf Urine Bacteria (Auto) (Negative) COVID-19 Eval Order SARS-CoV-2 (PCR) (Negative) Diagnostic Findings Pelvis X-Ray 03/31/21 02:54 XR pelvis 1-2V routine HISTORY: 80 years-old Female fall, trauma acute pelvic pain status post fall COMPARISON: None TECHNIQUE: Portable AP view of the pelvis FINDINGS: Demineralized appearance the bones. Moderate osteoarthritis of the hips. No a cute fracture, dislocation or avascular necrosis. No opaque foreign body. IMPRESSION: No acute fracture or dislocation. ACT 112: Negative or not required by law. The above report was generated using voice recognition software. It may contain grammatical, syntax or spelling errors. Electronically signed by: Lester Lopez M.D. 03/31/2021 7:40 AM PG Care Time/CCT Total # of Minutes Spent Total Time Spent with Patient: Total time spent is greater than 50% in coordination of care (as documented) at patient's floor/unit and/or counseling patient: Coding Level of Care Code 62902 Initial Inpt Care Lvl 3 Diagnoses Syncope and collapse R55 Closed head injury S09.90XA Encounter type: initial encounter Dementia F03.90 Diabetes mellitus E11.9 GERD (gastroesophageal reflux disease) K21.9 Hyperlipidemia E78.5 HTN (hypertension), benign I10 Fall W19.XXXA Shingles B02.9 Thoracic compression fracture S22.000A DVT prophylaxis Z29.9 (1) Closed head injury Encounter type: initial encounter Qualified Code(s): S09.90XA - Unspecified injury of head, initial encounter
--- NOTE | 2021-03-31 08:15 | CT Scan Report ---
CT head/brain wo con CLINICAL HISTORY: 80 years-old Female with closed head injury, right sided trauma. Acute head injury TECHNIQUE: Multiple axial CT images of the head were obtained without contrast. A dose lowering tech nique was utilized adhering to the principles of ALARA. COMPARISON: 01/31/2016. FINDINGS: Mildly motion degraded exam. No acute intracranial hemorrhage, midline shift, intracranial mass, hydr ocephalus, territorial ischemia or abnormal extra-axial collection. Age-related involutional changes with mild white matter hypodensities suggestive of chronic microvascular ischemic disease. The calvarium is intact. Trace right mastoid effusion. Left mastoid air cells are clear. Mild mucope riosteal thickening of the maxillary sinuses. Soft tissues are unremarkable. Prior left-sided lens re pair. IMPRESSION: No acute intracranial abnormality or calvarial fracture. ACT 112: Negative or not required by law. The above report was generated using voice recognition software. It may contain grammatical, syntax o r spelling errors. Electronically signed by: Lester Lopez M.D. 03/31/2021 8:14 AM
--- NOTE | 2021-03-31 08:29 | CT Scan Report ---
CT cervical spine wo con CT DOSE: 1055.40 mGy.cm CLINICAL HISTORY: 80 years-old Female with closed head injury. Acute head and neck injury COMPARISON: Head CT of same day TECHNIQUE: Multiple axial CT images of the cervical spine were obtained without contrast. A dose low ering technique was utilized adhering to the principles of ALARA. FINDINGS: Demineralized appearance of the bones. Moderate multilevel emphysematous space narrowing with spondyl itic spurring, vacuum disc phenomena and severe facet arthrosis. Severe degeneration with chronic rem odeling at C1-C2. Multilevel neural foraminal narrowing. No pneumothorax. Groundglass opacities of the right lung apex may be atelectatic. Calcified plaque is noted within the region of the proximal right subclavian artery. No prevertebral edema. IMPRESSION: No acute fracture or subluxation. ACT 112: Negative or not required by law. The above report was generated using voice recognition software. It may contain grammatical, syntax o r spelling errors. Electronically signed by: Lester Lopez M.D. 03/31/2021 8:28 AM
[2021-03-31] MEDS ORDERED: GLUCAGON FOR INJ 1 MG VIAL SQ PRN (09:51)
[2021-03-31] MEDS ORDERED: ACETAMINOPHEN 325 MG TAB PO PRN (09:51)
[2021-03-31] MEDS ORDERED: GLUCOSE 40% GEL 15 GM TUBE PO PRN (09:51)
[2021-03-31] MEDS ORDERED: ONDANSETRON INJ 2 MG/ML 2 ML VIAL IV PRN (09:51)
[2021-03-31] MEDS ORDERED: CARBOHYDRATES FOR HYPOGLYCEMIA PO PRN (09:51)
[2021-03-31] MEDS ORDERED: GLUCOSE 10 TABS/TUBE PO PRN (09:51)
[2021-03-31] MEDS ORDERED: ALUMINUM/MAGNESIUM SUSP 30 ML UDC PO PRN (09:51)
[2021-03-31] MEDS ORDERED: POLYETHYLENE (MIRALAX) 17 GM PACK PO PRN (09:51)
[2021-03-31] MEDS ORDERED: DEXTROSE 50% 50 ML SYRINGE IV PRN (09:51)
[2021-03-31] MEDS: valACYclovir HCL 500 MG TABLET PO SCH ×3 (10:40→20:57)
[2021-03-31] MEDS: METOPROLOL TARTRATE 50 MG TAB PO SCH ×2 (10:41→20:57)
[2021-03-31] MEDS: LOSARTAN POTASSIUM 25 MG TAB PO SCH (10:41)
[2021-03-31] MEDS: FENOFIBRATE NANOCRYSTALLIZED 145 MG TABLET PO SCH (10:42)
[2021-03-31] MEDS: LIDOCAINE 5% 1 PATCH TD SCH (10:43)
[2021-03-31] MEDS: INSULIN ASPART 100 UNITS/ML 3 ML PEN SC SCH ×3 (10:49→21:20)
[2021-03-31] MEDS: PREGABALIN 75 MG CAP PO SCH ×2 (10:57→20:57)
--- NOTE | 2021-03-31 12:31 | XRay Report ---
XR thoracic spine 3V routine HISTORY: 80 years-old Female fall,spinal tenderness T6-7 region acute chest pain status post fall COMPARISON: Chest radiograph of same day TECHNIQUE: 3 views of the thoracic spine FINDINGS: Cardiac silhouette is enlarged. Calcified plaque of the thoracic aorta. The patient is slightly side bent towards the left. Moderate multilevel intervertebral disc space narrowing with spondylitic spurr ing and facet arthrosis. There is mild age-indeterminate superior endplate compression noted involvin g a midthoracic segment, likely T6. No retropulsion. Subacute to chronic appearing fracture of the la teral left fifth rib. IMPRESSION: 1. Age-indeterminate superior endplate compression deformity involves a midthoracic segment which corrina ears to be T6. Correlate with point tenderness to exclude an acute fracture. 2. Subacute versus chronic fracture of the lateral left fifth rib. ACT 112: Negative or not required by law. The above report was generated using voice recognition software. It may contain grammatical, syntax o r spelling errors. Electronically signed by: Lester Lopez M.D. 03/31/2021 12:30 PM
[2021-03-31] MEDS ORDERED: MICONAZOLE NITRATE POWDER 43 GM EXT PRN (13:21)
[2021-03-31] MEDS: ATORVASTATIN 40 MG TAB PO SCH (20:57)
[2021-03-31] MEDS: PANTOprazole 40 MG TAB PO SCH (20:57)
--- NOTE | 2021-04-01 00:21 | Electrocardiogram Report ---
Test Reason : Blood Pressure : / mmHG Vent. Rate : 057 BPM Atrial Rate : 057 BPM P-R Int : 200 ms QRS Dur : 078 ms QT Int : 424 ms P-R-T Axes : 065 021 003 degrees QTc Int : 412 ms Poor data quality, interpretation may be adversely affected Sinus bradycardia Nonspecific T wave abnormality When compared with ECG of 31-JAN-2016 12:34, T wave inversion now evident in Inferior leads Confirmed by Ray Car ([id number]) on 04/01/2021 12:20:57 AM Referred By: [facility] Confirmed By:Ray Car
--- NOTE | 2021-04-01 06:15 | Electrocardiogram Report ---
Test Reason : Blood Pressure : / mmHG Vent. Rate : 060 BPM Atrial Rate : 060 BPM P-R Int : 194 ms QRS Dur : 074 ms QT Int : 422 ms P-R-T Axes : 064 019 014 degrees QTc Int : 422 ms Normal sinus rhythm Normal ECG When compared with ECG of 31-MAR-2021 03:10, No significant change was found Confirmed by Ray Car ([id number]) on 04/01/2021 6:15:36 AM Referred By: [facility] Confirmed By:Ray Car
[2021-04-01 07:05] LABS: Basophils # (auto) 0.01 K/uL (0-0.2); Basophils % (auto) 0.1 %; Eosinophils # (auto) 0.15 K/uL (0-0.5); Eosinophils % (auto) 2.1 %; Hematocrit (blood only) 35.9 % (37-47); Hemoglobin 12.1 g/dL (12.0-16.0); Immature Granulocytes # (auto) 0.03 K/uL (0.00-0.02); Immature Granulocytes % (auto) 0.4 %; Lymphocytes # (auto) 2.97 K/uL (1.2-3.4); Lymphocytes % (auto) 41.9 %; Mean Corpuscular Hemoglobin 30.3 pg (25-34); Mean Corpuscular Hgb Conc 33.7 g/dL (32-36); Mean Platelet Volume 10.6 fL (7.4-10.4); Monocytes # (auto) 0.54 K/uL (0.11-0.59); Monocytes % (auto) 7.6 %; Neutrophils # (auto) 3.38 K/uL (1.4-6.5); Neutrophils % (auto) 47.9 %; Platelet Count 294 K/uL (130-400); RDW Coefficient of Variation 13.2 % (11.5-14.5); Red Blood Count 3.99 M/uL (4.2-5.4); White Blood Count 7.08 K/uL (4.8-10.8)
[2021-04-01 07:56] LABS: BUN Creatinine Ratio 19.8 (10-20); Calcium 8.9 mg/dl (8.5-10.1); Creatinine Clr Calc Pharmacy 54.5 ml/min; Est GFR (Non-African American) 74.2 ml/min; Potassium 3.8 mmol/L (3.5-5.1)
[2021-04-01] MEDS: FENOFIBRATE NANOCRYSTALLIZED 145 MG TABLET PO SCH (08:02)
[2021-04-01] MEDS: METOPROLOL TARTRATE 50 MG TAB PO SCH ×2 (08:02→20:26)
[2021-04-01] MEDS: valACYclovir HCL 500 MG TABLET PO SCH ×3 (08:02→20:26)
[2021-04-01] MEDS: LIDOCAINE 5% 1 PATCH TD SCH (08:02)
[2021-04-01] MEDS: PANTOprazole 40 MG TAB PO SCH ×2 (08:02→20:26)
[2021-04-01] MEDS: LOSARTAN POTASSIUM 25 MG TAB PO SCH (08:02)
[2021-04-01] MEDS: PREGABALIN 75 MG CAP PO SCH ×2 (08:30→20:26)
[2021-04-01] MEDS: INSULIN ASPART 100 UNITS/ML 3 ML PEN SC SCH ×4 (08:31→20:39)
--- NOTE | 2021-04-01 10:45 | XCELERA ---
[id number]
--- NOTE | 2021-04-01 18:11 | Hospitalist Progress Note ---
Date of Service April 01, 2021 Assessment & Plan (1) Syncope and collapse: Possible vasovagal syncope vs mechanical fall with LOC from head trauma- was unwitnessed but had period of unresponsiveness ECHO normal, serial troponins negative -no events on tele ECG here normal, SB PT/OT consults appreciated otherwise no signs of infection or metabolic derangement CT head neg Likely a mechanical fall ok to transfer off tele -awaiting being off 1:1 sitter for 24 hrs before [facility] will accept her back-transferring from room 278 to 251 so she can have q15 min checks through the ante room window (2) Closed head injury: had mild BURCIAGA but CT head and neck neg headache now resolved (3) Dementia: moderate-severe supportive care try to wean off 1:1 sitter--> is pleasantly confused and impulsive, very mobile and likes to walk around room by herself (4) Diabetes mellitus: HgbA1C only 5.5% in 01/2021, glucose here well controlled for age most likely won't need SSI (5) GERD (gastroesophageal reflux disease): continue PPI bid (6) Hyperlipidemia: continue statin (7) HTN (hypertension), benign: BPs acceptable continue losartan and metoprolol (8) Fall: as above with thoracic compression fracture T6 likely acute given point tenderness Left 5th rib fracture is chronic and no pain at that site (9) Shingles: being treated for this currently-is on buttocks this is a third recurrence of shingles for this pt as per daughter -finish out course of Valtrex (10) Thoracic compression fracture: Thoraic cspine xrays: IMPRESSION: 1. Age-indeterminate superior endplate compression deformity involves a midthoracic segment which appears to be T6. Correlate with point tenderness to exclude an acute fracture. 2. Subacute versus chronic fracture of the lateral left fifth rib. T6 compression deformity, with pain on exam -started lidocaine patch tylenol prn (11) Rib fracture: as above, chronic left 5th rib fracture, not from this fall (12) DVT prophylaxis: Lovenox SQ Dispo-continued stay, awaiting being 1:1 free for 24 hours and [facility] will then take her back as she is a longterm resident there; transfer off tele today Discussed care with her daughter on the phone Admission and Anticipated Discharge Date Admission Date: April 01, 2021 Subjective Pt pleasantly confused. has some pain in the back when touched but otherwise doing well. She is eating an drinking. Frequently gets up spontaneously to try to walk around and has been on a 1:1 sitter for safety due to being in a COVID room with an opaque door. Tele with NSR rates 50-60s Review of Systems Review of Systems: All systems reviewed & are unremarkable except as noted in HPI & below Physical Exam Constitutional: WD/WN, vitals as above Eyes: + anicteric sclerae Neck: trachea midline, no thyromegaly Respiratory: normal respiratory effort, lungs clear to auscultation Cardiovascular: RRR, no murmur, no edema Chest (Breasts): Chest: normal inspection of chest Gastrointestinal (Abdomen): normal bowel sounds, soft, nontender, no hepatosplenomegaly Musculoskeletal: Spine: + thoracic spinal tenderness (over T6-7 region ) Extremities: extremities normal to inspection; no cyanosis and no clubbing Skin: + rash (very faint rash buttocks) Neurologic: moves all extremities and awake; no focal motor deficits Psychiatric: Orientation: alert, oriented to person and cooperative Affect: euthymic affect Lymphatic: no lymphedema Results & Data Results & Data ([facility]) Vital Signs (Past 12 Hours) Vital Signs Temp Pulse Pulse Resp BP Pulse Ox 04/01/21 11:14 36.6 C 68 18 163/79 H 94 04/01/21 08:01 68 165/61 H 04/01/21 08:00 78 04/01/21 06:53 36.3 C L 62 18 149/66 H 94 Laboratory Results 04/01/21 04/01/21 04/01/21 Range/Units 16:37 12:04 07:47 WBC (4.8-10.8) K/uL RBC (4.2-5.4) M/uL Hgb (12.0-16.0) g/dL Hct (37-47) % MCV (80-100) fL MCH (25-34) pg MCHC (32-36) g/dL RDW Std Deviation (36.4-46.3) fL RDW Coeff of Batsheva (11.5-14.5) % Plt Count (130-400) K/uL MPV (7.4-10.4) fL Immature Gran % (Auto) % Neut % (Auto) % Lymph % (Auto) % [place] % (Auto) % Eos % (Auto) % Baso % (Auto) % Neut # (Auto) (1.4-6.5) K/uL Lymph # (Auto) (1.2-3.4) K/uL [place] # (Auto) (0.11-0.59) K/uL Eos # (Auto) (0-0.5) K/uL Baso # (Auto) (0-0.2) K/uL Immature Gran # (Auto) (0.00-0.02) K/uL Sodium (136-145) mmol/L Potassium (3.5-5.1) mmol/L Chloride (98-107) mmol/L Carbon Dioxide (21-32) mmol/L Anion Gap (3-11) BUN (7-18) mg/dl Creatinine (0.6-1.2) mg/dl Est Cr Clr Drug Dosing ml/min Est GFR ( Amer) ml/min Est GFR (Non-Af Amer) ml/min BUN/Creatinine Ratio (10-20) Glucose (70-99) mg/dl POC Glucose 158 H 146 H 133 H (70-99) mg/dl Estimat Average Glucose Hemoglobin A1c Calcium (8.5-10.1) mg/dl 04/01/21 04/01/21 04/01/21 Range/Units 06:33 06:33 06:33 WBC 7.08 (4.8-10.8) K/uL RBC 3.99 L (4.2-5.4) M/uL Hgb 12.1 (12.0-16.0) g/dL Hct 35.9 L (37-47) % MCV 90.0 (80-100) fL MCH 30.3 (25-34) pg MCHC 33.7 (32-36) g/dL RDW Std Deviation 43.0 (36.4-46.3) fL RDW Coeff of Batsheva 13.2 (11.5-14.5) % Plt Count 294 (130-400) K/uL MPV 10.6 H (7.4-10.4) fL Immature Gran % (Auto) 0.4 % Neut % (Auto) 47.9 % Lymph % (Auto) 41.9 % [place] % (Auto) 7.6 % Eos % (Auto) 2.1 % Baso % (Auto) 0.1 % Neut # (Auto) 3.38 (1.4-6.5) K/uL Lymph # (Auto) 2.97 (1.2-3.4) K/uL [place] # (Auto) 0.54 (0.11-0.59) K/uL Eos # (Auto) 0.15 (0-0.5) K/uL Baso # (Auto) 0.01 (0-0.2) K/uL Immature Gran # (Auto) 0.03 H (0.00-0.02) K/uL Sodium 138 (136-145) mmol/L Potassium 3.8 (3.5-5.1) mmol/L Chloride 108 H (98-107) mmol/L Carbon Dioxide 25 (21-32) mmol/L Anion Gap 5.0 (3-11) BUN 15 (7-18) mg/dl Creatinine 0.75 (0.6-1.2) mg/dl Est Cr Clr Drug Dosing 54.5 ml/min Est GFR ( Amer) 86.0 ml/min Est GFR (Non-Af Amer) 74.2 ml/min BUN/Creatinine Ratio 19.8 (10-20) Glucose 172 H (70-99) mg/dl POC Glucose (70-99) mg/dl Estimat Average Glucose Pending Hemoglobin A1c Pending Calcium 8.9 (8.5-10.1) mg/dl 03/31/21 Range/Units 20:01 WBC (4.8-10.8) K/uL RBC (4.2-5.4) M/uL Hgb (12.0-16.0) g/dL Hct (37-47) % MCV (80-100) fL MCH (25-34) pg MCHC (32-36) g/dL RDW Std Deviation (36.4-46.3) fL RDW Coeff of Batsheva (11.5-14.5) % Plt Count (130-400) K/uL MPV (7.4-10.4) fL Immature Gran % (Auto) % Neut % (Auto) % Lymph % (Auto) % [place] % (Auto) % Eos % (Auto) % Baso % (Auto) % Neut # (Auto) (1.4-6.5) K/uL Lymph # (Auto) (1.2-3.4) K/uL [place] # (Auto) (0.11-0.59) K/uL Eos # (Auto) (0-0.5) K/uL Baso # (Auto) (0-0.2) K/uL Immature Gran # (Auto) (0.00-0.02) K/uL Sodium (136-145) mmol/L Potassium (3.5-5.1) mmol/L Chloride (98-107) mmol/L Carbon Dioxide (21-32) mmol/L Anion Gap (3-11) BUN (7-18) mg/dl Creatinine (0.6-1.2) mg/dl Est Cr Clr Drug Dosing ml/min Est GFR ( Amer) ml/min Est GFR (Non-Af Amer) ml/min BUN/Creatinine Ratio (10-20) Glucose (70-99) mg/dl POC Glucose 125 H (70-99) mg/dl Estimat Average Glucose Hemoglobin A1c Calcium (8.5-10.1) mg/dl PG Care Time/CCT Total # of Minutes Spent Total Time Spent with Patient: Total time spent is greater than 50% in coordination of care (as documented) at patient's floor/unit and/or counseling patient: Coding Level of Care Code 88339 Subseq Hosp Care Lvl 2 Diagnoses Syncope and collapse R55 Closed head injury S09.90XA Encounter type: initial encounter Dementia F03.90 Diabetes mellitus E11.9 GERD (gastroesophageal reflux disease) K21.9 Hyperlipidemia E78.5 HTN (hypertension), benign I10 Fall W19.XXXA Shingles B02.9 Thoracic compression fracture S22.000A Rib fracture S22.39XA DVT prophylaxis Z29.9 (1) Closed head injury Encounter type: initial encounter Qualified Code(s): S09.90XA - Unspecified injury of head, initial encounter
[2021-04-01] MEDS: ATORVASTATIN 40 MG TAB PO SCH (20:26)
[2021-04-02 07:25] LABS: Estimated Average Glucose 154 mg/dl
[2021-04-02] MEDS: INSULIN ASPART 100 UNITS/ML 3 ML PEN SC SCH (08:22)
[2021-04-02] MEDS: LIDOCAINE 5% 1 PATCH TD SCH (08:23)
[2021-04-02] MEDS: LOSARTAN POTASSIUM 25 MG TAB PO SCH (08:24)
[2021-04-02] MEDS: FENOFIBRATE NANOCRYSTALLIZED 145 MG TABLET PO SCH (08:24)
[2021-04-02] MEDS: METOPROLOL TARTRATE 50 MG TAB PO SCH ×2 (08:25→21:34)
[2021-04-02] MEDS: PANTOprazole 40 MG TAB PO SCH ×2 (08:25→21:36)
[2021-04-02] MEDS: valACYclovir HCL 500 MG TABLET PO SCH ×3 (08:26→21:23)
[2021-04-02] MEDS: PREGABALIN 75 MG CAP PO SCH ×2 (08:27→21:39)
--- NOTE | 2021-04-02 14:41 | Discharge Summary ---
Date of Service April 02, 2021 Admission HPI Per Admitting Provider This patient is an 80-year-old female with a history of dementia, DM 2, hyperlipidemia, HTN, GERD/PUD who is a resident of the custodial [facility] who presents to the ER after an unwitnessed fall was heard by the patient's roommate and the patient was thought to have hit her right side of the head on the wall and then was found on the ground unresponsive. Apparently nursing staff sternally rubbed her and eventually she woke up. Reports from the custodial also state that she had been acting a little bit more agitated than usual the last couple of days. History was difficult as the patient has dementia but she tells me she has no recollection of any events leading up to her being in the hospital. She does know she's in the hospital. SHe reports a posterior headache and some pain in the neck. Denies pain anywhere else. In the ER, she did not have any ongoing neurological deficits and stroke was not suspected. She had a CT of the head and cervical spine, chest x-ray and pelvis x-ray which were all negative. There is no evidence of UTI or metabolic abnormalities or anemia on laboratory work-up. She will be admitted for fall mechanical versus vasovagal syncope resulting in closed head trauma with loss of consciousness. Discharge Data Allergies Allergy/AdvReac Type Severity Reaction Status Date / Time morphine AdvReac Severe UPSET Verified 03/31/21 03:12 STOMACH codeine AdvReac Mild N/V Verified 03/31/21 03:12 Ordered Studies 03/31/21 02:54 CT cervical spine wo con Urgent CT head/brain wo con Urgent Hospital Course (1) Syncope and collapse: Possible vasovagal syncope vs mechanical fall with LOC from head trauma- was unwitnessed but had period of unresponsiveness ECHO normal, serial troponins negative -no events on tele ECG here normal, SB PT/OT consults appreciated otherwise no signs of infection or metabolic derangement CT head neg Likely a mechanical fall ok to transfer off tele -awaiting being off 1:1 sitter for 24 hrs before [facility] will accept her back-transferring from room 278 to 251 so she can have q15 min checks through the ante room window (2) Closed head injury: had mild BURCIAGA but CT head and neck neg headache now resolved (3) Dementia: moderate-severe supportive care try to wean off 1:1 sitter--> is pleasantly confused and impulsive, very mobile and likes to walk around room by herself (4) Diabetes mellitus: HgbA1C only 5.5% in 01/2021, glucose here well controlled for age most likely won't need SSI (5) GERD (gastroesophageal reflux disease): continue PPI bid (6) Hyperlipidemia: continue statin (7) HTN (hypertension), benign: BPs acceptable continue losartan and metoprolol (8) Fall: as above with thoracic compression fracture T6 likely acute given point tenderness Left 5th rib fracture is chronic and no pain at that site (9) Shingles: being treated for this currently-is on buttocks this is a third recurrence of shingles for this pt as per daughter -finish out course of Valtrex (10) Thoracic compression fracture: Thoraic cspine xrays: IMPRESSION: 1. Age-indeterminate superior endplate compression deformity involves a midthoracic segment which appears to be T6. Correlate with point tenderness to exclude an acute fracture. 2. Subacute versus chronic fracture of the lateral left fifth rib. T6 compression deformity, with pain on exam -started lidocaine patch tylenol prn (11) Rib fracture: as above, chronic left 5th rib fracture, not from this fall (12) DVT prophylaxis: Lovenox SQ Dispo-continued stay, awaiting being 1:1 free for 24 hours and [facility] will then take her back as she is a [facility] resident there; transfer off tele today Discussed care with her daughter on the phone Discharge Plan Discharge Items Patient Disposition: Trans Resident Long-Term Care Reason For Visit: FALL,SYNCOPE Discharge Diagnosis: Fall, syncope Activity: Resume your previous activity Non-emergency contact: Primary Care Provider Call non-emergency contact if: you have any medication questions and your symptoms worsen Follow-up/Referrals: [facility] [Primary Care Provider] - Diet: Carb Consistent or DM2 and Heart Healthy Addtl Attending Provider Instructions: Marlene Mendoza is an 80-year-old female admitted to [facility] from March 30-2020 due to an unwitnessed fall. CT head showed no acute intracranial abnormality, CT cervical spine showed no acute fracture or subluxation, pelvic x-ray showed no acute fracture or dislocation, chest x-ray showed cardiomegaly with no acute process, thoracic spine x-ray showed age- indeterminate superior endplate compression involving mid thoracic segment of T6 without point tenderness on exam. There is an additional subacute versus chronic fracture of the left fifth rib. Syncope work-up included telemetry which was unremarkable. Echocardiogram with no regional wall or valvular abnormalities. Of note SARS-CoV-2 PCR positive on admission. Chest x-ray and labs not suggestive of an active infection and I suspect this is residual testing positive from her previous infection. However since she is outside 90 days current CDC recommends treating as an asymptomatic infection therefore she was placed on isolation during her admission. Her outpatient Valtrex was continued for suspected shingles rash. Pending Studies at Discharge: No Stand-Alone Forms: My [facility] SED Web, Smoking Cessation Skilled Items Patient informed of condition?: Yes DNR: No Discharge Level of Care: Other Communicable Disease: Yes Discharge Prognosis: Stable Lines: None Urinary Catheter: No Medications and DC Order Prescriptions: Continued atorvastatin 80 mg tablet 80 mg PO QPM RF: 0 valacyclovir 500 mg tablet 1,000 mg PO TID RF: 0 glimepiride 1 mg tablet 1 mg PO DAILY RF: 0 losartan 25 mg tablet 25 mg PO DAILY RF: 0 metoprolol tartrate 50 mg tablet 50 mg PO BID RF: 0 omeprazole 20 mg capsule,delayed release(DR/EC) 20 mg PO BID RF: 0 nystatin [Nyamyc] 100,000 unit/gram powder 1 applic TOPICAL QS RF: 0 pregabalin 75 mg capsule 75 mg PO BID RF: 0 fenofibrate nanocrystallized 145 mg tablet 145 mg PO DAILY RF: 0 acetaminophen 325 mg Tablet 650 mg PO Q6 MDD 3g see routine order PRN (Reason: Fever Or Pain) RF: 0 acetaminophen 650 mg Tablet Extended Release 650 mg PO Q12H RF: 0 Discharge Orders: Discharge Order (Routine); Ordered 04/02/21 Ordered By: Te Cortes/Other Patient Handouts: Managing Type 2 Diabetes, A1C Admission Data Admit Date/Time: 04/01/21 14:19 Attending Provider: Te Seymour Admit Provider: Melissa Claros Primary Care Provider: [facility] Other Providers: [facility] Coding Diagnoses Syncope and collapse R55 Closed head injury S09.90XA Encounter type: initial encounter Dementia F03.90 Diabetes mellitus E11.9 GERD (gastroesophageal reflux disease) K21.9 Hyperlipidemia E78.5 HTN (hypertension), benign I10 Fall W19.XXXA Shingles B02.9 Thoracic compression fracture S22.000A Rib fracture S22.39XA DVT prophylaxis Z29.9
--- NOTE | 2021-04-02 18:42 | Hospitalist Progress Note ---
Date of Service April 02, 2021 Assessment & Plan (1) Syncope and collapse: Possible vasovagal syncope vs mechanical fall with LOC from head trauma- was unwitnessed but had period of unresponsiveness ECHO normal, serial troponins negative -no events on tele ECG here normal, SB PT/OT consults appreciated otherwise no signs of infection or metabolic derangement CT head neg Likely a mechanical fall ok to transfer off tele -off sitter (2) Closed head injury: had mild BURCIAGA but CT head and neck neg headache now resolved (3) Dementia: moderate-severe supportive care try to wean off 1:1 sitter--> is pleasantly confused and impulsive, very mobile and likes to walk around room by herself (4) Diabetes mellitus: HgbA1C only 5.5% in 01/2021, glucose here well controlled for age most likely won't need SSI Stop BSG ACHS and insulin regimen as likely to only increase delirium (5) GERD (gastroesophageal reflux disease): continue PPI bid (6) Hyperlipidemia: continue statin (7) HTN (hypertension), benign: BPs acceptable continue losartan and metoprolol (8) Fall: as above with thoracic compression fracture T6 likely acute given point tenderness Left 5th rib fracture is chronic and no pain at that site (9) Shingles: being treated for this currently-is on buttocks this is a third recurrence of shingles for this pt as per daughter -finish out course of Valtrex (10) Thoracic compression fracture: Thoraic cspine xrays: IMPRESSION: 1. Age-indeterminate superior endplate compression deformity involves a midthoracic segment which appears to be T6. Correlate with point tenderness to exclude an acute fracture. 2. Subacute versus chronic fracture of the lateral left fifth rib. T6 compression deformity, with pain on exam -started lidocaine patch tylenol prn (11) Rib fracture: as above, chronic left 5th rib fracture, not from this fall (12) SARS-CoV-2 positive: No signs or symptoms of active COVID-19 infection. However patient is outside 90 day window therefore being treated as an asymptomatic COVID-19 infection per CDC guidance. Therefore will continue on COVID-19 isolation precautions during her admission. Defer to [facility] jail policy regarding discharge. (13) DVT prophylaxis: Lovenox SQ Dispo - medically stable for discharge Discussed care with her daughter on the phone Admission and Anticipated Discharge Date Admission Date: April 01, 2021 Subjective Patient remains pleasantly confused. Oriented to self only. Frequently gets up to walk around the room. One-to-one sitter no longer present. No signs or symptoms of COVID-19 pneumonia. Review of Systems Review of Systems: All systems reviewed & are unremarkable except as noted in HPI & below Physical Exam Constitutional: WD/WN, vitals as above Eyes: + anicteric sclerae Respiratory: normal respiratory effort, lungs clear to auscultation Cardiovascular: RRR, no murmur, no edema Gastrointestinal (Abdomen): normal bowel sounds, soft, nontender, no hepatos plenomegaly Musculoskeletal: Spine: no thoracic spinal tenderness Skin: no rashes, warm and dry (lower buttocks not observed) Neurologic: moves all extremities and awake; no focal motor deficits Psychiatric: Orientation: alert, oriented to person (self only) and cooperative; + not oriented to place and + not oriented to time Affect: euthymic affect Lymphatic: no lymphedema Results & Data Results & Data ([facility]) Vital Signs (Past 12 Hours) Vital Signs Temp Pulse Resp BP Pulse Ox Pulse Ox 04/02/21 15:07 37.1 C 81 18 136/76 94 04/02/21 11:12 36.5 C 73 18 160/81 H 96 04/02/21 09:03 96 04/02/21 08:17 36.6 C 55 L 19 109/61 96 PG Care Time/CCT Total # of Minutes Spent Total Time Spent with Patient: Total time spent is greater than 50% in coordination of care (as documented) at patient's floor/unit and/or counseling patient: Coding Level of Care Code 88813 Subseq Hosp Care Lvl 1 Diagnoses Syncope and collapse R55 Closed head injury S09.90XA Encounter type: initial encounter Dementia F03.90 Diabetes mellitus E11.9 GERD (gastroesophageal reflux disease) K21.9 Hyperlipidemia E78.5 HTN (hypertension), benign I10 Fall W19.XXXA Shingles B02.9 Thoracic compression fracture S22.000A Rib fracture S22.39XA SARS-CoV-2 positive U07.1 DVT prophylaxis Z29.9 (1) Closed head injury Encounter type: initial encounter Qualified Code(s): S09.90XA - Unspecified injury of head, initial encounter
[2021-04-02] MEDS: ATORVASTATIN 40 MG TAB PO SCH (21:36)
[2021-04-03] MEDS: FENOFIBRATE NANOCRYSTALLIZED 145 MG TABLET PO SCH (08:48)
[2021-04-03] MEDS: LIDOCAINE 5% 1 PATCH TD SCH (08:48)
[2021-04-03] MEDS: valACYclovir HCL 500 MG TABLET PO SCH (08:49)
[2021-04-03] MEDS: PREGABALIN 75 MG CAP PO SCH (08:49)
[2021-04-03] MEDS: PANTOprazole 40 MG TAB PO SCH (08:49)
[2021-04-03] MEDS: METOPROLOL TARTRATE 50 MG TAB PO SCH (08:49)
[2021-04-03] MEDS: LOSARTAN POTASSIUM 25 MG TAB PO SCH (08:49)
--- NOTE | 2021-04-11 13:33 | Discharge Summary ---
Date of Service April 03, 2021 Admission HPI Per Admitting Provider This patient is an 80-year-old female with a history of dementia, DM 2, hyperlipidemia, HTN, GERD/PUD who is a resident of the [facility] who presents to the ER after an unwitnessed fall was heard by the patient's roommate and the patient was thought to have hit her right side of the head on the wall and then was found on the ground unresponsive. Apparently nursing staff sternally rubbed her and eventually she woke up. Reports from the retirement also state that she had been acting a little bit more agitated than usual the last couple of days. History was difficult as the patient has dementia but she tells me she has no recollection of any events leading up to her being in the hospital. She does know she's in the hospital. SHe reports a posterior headache and some pain in the neck. Denies pain anywhere else. In the ER, she did not have any ongoing neurological deficits and stroke was not suspected. She had a CT of the head and cervical spine, chest x-ray and pelvis x-ray which were all negative. There is no evidence of UTI or metabolic abnormalities or anemia on laboratory work-up. She will be admitted for fall mechanical versus vasovagal syncope resulting in closed head trauma with loss of consciousness. Admission Exam Per Admitting Provider Constitutional: WD/WN, vitals as above Eyes: PERRL, conjunctivae normal, anicteric sclerae ENMT: external ear and nose normal, oropharynx normal Neck: trachea midline, no thyromegaly Respiratory: normal respiratory effort, lungs clear to auscultation Cardiovascular: RRR, no murmur, no edema Chest (Breasts): Chest: normal inspection of chest Gastrointestinal (Abdomen): normal bowel sounds, soft, nontender, no hepatosplenomegaly Musculoskeletal: Spine: + thoracic spinal tenderness (over T6-7 region ) Extremities: extremities normal to inspection; no cyanosis and no clubbing Skin: no rashes, warm and dry Neurologic: moves all extremities and awake; no focal motor deficits Psychiatric: Orientation: alert, oriented to person, oriented to place and cooperative Affect: euthymic affect Lymphatic: no lymphedema Principal Diagnosis Fall, syncope Discharge Exam Constitutional WD/WN, vitals as above Eyes + anicteric sclerae Respiratory normal respiratory effort, lungs clear to auscultation Cardiovascular RRR, no murmur, no edema Gastrointestinal (Abdomen) normal bowel sounds, soft, nontender, no hepatosplenomegaly Musculoskeletal Spine: no thoracic spinal tenderness Skin no rashes, warm and dry (lower buttocks not observed) Neurologic moves all extremities and awake; no focal motor deficits Psychiatric Orientation: alert, oriented to person (self only) and cooperative; + not oriented to place and + not oriented to time Affect: euthymic affect Discharge Data Allergies Allergy/AdvReac Type Severity Reaction Status Date / Time morphine AdvReac Severe UPSET Verified 03/31/21 03:12 STOMACH codeine AdvReac Mild N/V Verified 03/31/21 03:12 Ordered Studies 03/31/21 02:54 CT cervical spine wo con Urgent IMPRESSION: No acute fracture or subluxation. CT head/brain wo con Urgent IMPRESSION: No acute intracranial abnormality or calvarial fracture. Hospital Course (1) Syncope and collapse: Marlene Mendoza is an 80-year-old female admitted to [facility] from March 30-2020 due to an unwitnessed fall. CT head showed no acute intracranial abnormality, CT cervical spine showed no acute fracture or subluxation, pelvic x-ray showed no acute fracture or dislocation, chest x-ray showed cardiomegaly with no acute process, thoracic spine x-ray showed age- indeterminate superior endplate compression involving mid thoracic segment of T6 without point tenderness on exam. There is an additional subacute versus chronic fracture of the left fifth rib. Syncope work-up included telemetry which was unremarkable. Echocardiogram with no regional wall or valvular abnormalities. Of note SARS-CoV-2 PCR positive on admission. Chest x-ray and labs not suggestive of an active infection and I suspect this is residual testing positive from her previous infection. However since she is outside 90 days current CDC recommends treating as an asymptomatic infection therefore she was placed on isolation during her admission. Her outpatient Valtrex was continued for suspected shingles rash. (2) Closed head injury: (3) Dementia: (4) Diabetes mellitus: (5) GERD (gastroesophageal reflux disease): (6) Hyperlipidemia: (7) HTN (hypertension), benign: (8) Fall: (9) Shingles: (10) Thoracic compression fracture: (11) Rib fracture: (12) SARS-CoV-2 positive: (13) DVT prophylaxis: Total Time Total Time Spent Total Time Spent (In Minutes): 20 Total Time Includes: Examination of the Patient, Discharge Planning and Medication Reconciliation Discharge Plan Discharge Items Patient Disposition: Transfer Nursing Home Fac Reason For Visit: FALL,SYNCOPE Discharge Diagnosis: Fall, syncope Activity: Resume your previous activity Non-emergency contact: Primary Care Provider Call non-emergency contact if: you have any medication questions and your symptoms worsen Follow-up/Referrals: [facility] [Primary Care Provider] - Diet: Carb Consistent or DM2 and Heart Healthy Addtl Attending Provider Instructions: Marlene Mendoza is an 80-year-old female admitted to [facility] from March 30-2020 due to an unwitnessed fall. CT head showed no acute intracranial abnormality, CT cervical spine showed no acute fracture or subluxation, pelvic x-ray showed no acute fracture or dislocation, chest x-ray showed cardiomegaly with no acute process, thoracic spine x-ray showed age- indeterminate superior endplate compression involving mid thoracic segment of T6 without point tenderness on exam. There is an additional subacute versus chronic fracture of the left fifth rib. Syncope work-up included telemetry which was unremarkable. Echocardiogram with no regional wall or valvular abnormalities. Of note SARS-CoV-2 PCR positive on admission. Chest x-ray and labs not suggestive of an active infection and I suspect this is residual testing positive from her previous infection. However since she is outside 90 days current CDC recommends treating as an asymptomatic infection therefore she was placed on isolation during her admission. Her outpatient Valtrex was continued for suspected shingles rash. Pending Studies at Discharge: No Stand-Alone Forms: My [facility], Smoking Cessation Skilled Items Patient informed of condition?: Yes DNR: No Discharge Level of Care: Other Communicable Disease: Yes Discharge Prognosis: Stable Lines: None Urinary Catheter: No Medications and DC Order Prescriptions: Continued atorvastatin 80 mg tablet 80 mg PO QPM RF: 0 valacyclovir 500 mg tablet 1,000 mg PO TID RF: 0 glimepiride 1 mg tablet 1 mg PO DAILY RF: 0 losartan 25 mg tablet 25 mg PO DAILY RF: 0 metoprolol tartrate 50 mg tablet 50 mg PO BID RF: 0 omeprazole 20 mg capsule,delayed release(DR/EC) 20 mg PO BID RF: 0 nystatin [Nyamyc] 100,000 unit/gram powder 1 applic TOPICAL QS RF: 0 pregabalin 75 mg capsule 75 mg PO BID RF: 0 fenofibrate nanocrystallized 145 mg tablet 145 mg PO DAILY RF: 0 acetaminophen 325 mg Tablet 650 mg PO Q6 MDD 3g see routine order PRN (Reason: Fever Or Pain) RF: 0 acetaminophen 650 mg Tablet Extended Release 650 mg PO Q12H RF: 0 Discharge Orders: Discharge Order (Routine); Ordered 04/03/21 Ordered By: Te Cortes/Other Patient Handouts: Managing Type 2 Diabetes, A1C Admission Data Admit Date/Time: 04/01/21 14:19 Attending Provider: Te Seymour Admit Provider: Melissa Claros Primary Care Provider: [facility] Other Providers: [facility] Other Interventions: Discharge Summary Assessment (RN) Last Done: 04/03/21 15:36 Coding Level of Care Code D/C Day Management <30 mins Diagnoses Syncope and collapse R55 Closed head injury S09.90XA Encounter type: initial encounter Dementia F03.90 Diabetes mellitus E11.9 GERD (gastroesophageal reflux disease) K21.9 Hyperlipidemia E78.5 HTN (hypertension), benign I10 Fall W19.XXXA Shingles B02.9 Thoracic compression fracture S22.000A Rib fracture S22.39XA SARS-CoV-2 positive U07.1 DVT prophylaxis Z29.9
== END 2021-04-03 16:36 | DRG 88 ==
LOC: 2N 02:47 → ED 02:47 → 2N 09:28 → SUATTDRO 04-01 14:19 → 2W 04-01 22:50

== ENCOUNTER 2022-06-24 14:35 | Inpatient (IN) ==
[2022-06-24] MEDS ORDERED: OPTIRAY 300 500mL IV ONE (14:46)
--- NOTE | 2022-06-24 14:50 | CT Scan Report ---
CT SCAN OF THE BRAIN WITHOUT IV CONTRAST CLINICAL HISTORY: Strokelike symptoms. COMPARISON STUDY: CT of the brain dated 03/31/2021. TECHNIQUE: Unenhanced axial CT scan of the brain is performed from the vertex to the skull base. A do se lowering technique was utilized adhering to the principles of ALARA. FINDINGS: Brain parenchyma: There is diffuse loss of vee-white matter differentiation seen throughout the righ t MCA territory consistent with a large subacute infarct. There is associated edema with effacement o f the overlying cortical sulci. There is also a subacute infarct in the left occipital lobe. There is age-related involutional change noting mild to moderate subcortical and periventricular microangiopa thic disease. There is no hemorrhage or midline shift. No extra-axial fluid collection is seen. Ventricles, sulci, cisterns: Prominent secondary to involutional change. Intracranial vasculature: There is atherosclerotic calcification of the cavernous carotid arteries.. Calvarium: Unremarkable. Sinuses and mastoids: There is trace mucosal thickening within the maxillary antra. The remaining par anasal sinuses are clear. The mastoid air cells are well pneumatized. Orbits: The bony orbits are grossly intact. There is a left ocular lens implant. IMPRESSION: 1. Large subacute right MCA territory infarct. 2. There is also a subacute left occipital lobe infarct. 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 3. No hemorrhage or midline shift is identified. ACT 112: Negative or not required by law. Electronically signed by: Andrew Cummins M.D. 06/24/2022 2:47 PM
--- NOTE | 2022-06-24 14:55 | Emergency Department Note ---
Impression & Plan Acute ischemic stroke, Acute ischemic right MCA stroke, Atrial fibrillation with rapid ventricular response ED Provider Note NAME: EVY ALDANA AGE: 81 SEX: F : 1940 ARRIVES VIA: Ambulance INFORMANT: EMS ED PROVIDER(S): Baldemar Rob DO CHIEF COMPLAINT: Strokelike symptoms HPI: Patient is an 81-year-old female who presented to the emergency department for strokelike symptoms. I received a prehospital notification about the patient to discuss the possibility of a stroke alert. According to the prehospital personnel the patient has been having episodes of apnea over the weekend. [facility] noted that she was improving at approximately 8 AM this morning. When they went to check on her again this afternoon she was noted to have strokelike symptoms with left-sided weakness. The patient was diagnosed with COVID approximately 10 days ago. She was started on paxlovid for this. The patient is unable to answer questions at this time. She was found to be in rapid atrial fibrillation prior to arrival. There is no reported nausea or vomiting. The patient has been breathing on her own prior to arrival. There was no reported fall. ROS: See above HPI for pertinent positives & negatives. A total of 10 systems reviewed and were otherwise negative. PAST MEDICAL HISTORY: See Below PAST SURGICAL HISTORY: See Below FAMILY HISTORY: See Below SOCIAL HISTORY: See Below HOME MEDICATIONS: See Below ALLERGIES: See Below VITALS: See Below PHYSICAL EXAMINATION: GENERAL: The patient is listless and cannot follow commands at this time. EYES: The conjunctivae are clear. The pupils are round and reactive. EARS, NOSE, MOUTH AND THROAT: The nose is without any evidence of any deformity. NECK: The neck is nontender and supple. RESPIRATORY: Sonorous respirations were noted. Diminished breath sounds are noted throughout. CARDIOVASCULAR: Tachycardic and irregular heart sounds were noted auscultation. GASTROINTESTINAL: The abdomen is soft. Abdomen is nontender. MUSCULOSKELETAL/EXTREMITIES: There is no evidence of gross deformity full range of motion is noted in the hips and shoulders. SKIN: The skin is warm and dry. Trace pedal edema was noted bilaterally. NEUROLOGIC: The patient does not follow commands. She does not answer questions with verbal responses. She has left-sided upper and lower extremity weakness. MEDICAL DECISION MAKING: The patient is an 81-year-old female who presented to the emergency department with strokelike symptoms. The patient was found to have acute left-sided w eakness. Her last known well time seems to be this morning. The patient was made a stroke alert prior to arrival. The patient was found to have signs of a subacute infarct involving the right MCA territory. She also had an occipital infarct on the left. This also appears to be subacute. The patient was found to be in atrial fibrillation which appears to be a new diagnosis for her compared to her previous EKG. She also had a large vessel occlusion in her MCA. I discussed the patient's laboratory and radiographic studies with the telestroke neurologist. She does not appear to be a candidate for thrombolytics given her presentation and her last known well time. She also does not appear to be a candidate for mechanical thrombectomy given the large amount of changes already noted on plain CT. I discussed her condition with the on-call [facility] hospitalist. They have agreed to evaluate the patient in the emergency department. Triage Nursing notes reviewed. Prior medical records reviewed Vital Signs: reviewed and remarkable for tachycardia Differential diagnosis: Infection, dehydration, metabolic abnormality, hypo/hyperglycemia, electrolyte disturbance, anemia, hypoxia, cardiac sources, intracerebral event, toxicologic, neurologic, as well as other pathologies. ER treatment provided: See below Diagnostics interpreted by me: ECG: EKG was obtained in the emergency department. My interpretation is atrial fibrillation with rapid ventricular response at 145 bpm. There were no PVCs. Nonspecific ST segment abnormalities were noted. This was compared to a tracing from March 31, 2021. Atrial fibrillation with RVR has replaced sinus rhythm. Cardiac Monitoring: An order was placed for continuous cardiac monitoring. The monitor shows a rate of 146 bpm with atrial fibrillation and RVR. Laboratory studies: As stated above and show below. Imaging studies: See below Consultation(s): I discussed this case with Dr. Nevarez who was on-call for [facility]. Discussed this case with Dr. Garcia [facility] ED COURSE: Procedures: none Critical Care: I have personally spent greater than 45 minutes of critical care time in the direct management of this patient. This includes bedside care, interpretation of diagnostic studies, and testing, discussion with consultants, patient, and family members, and other required patient management activities. This 45 minutes is in excess of all separately billable procedures. Past Med/Surg History Medical History Dementia Diabetes mellitus GERD (gastroesophageal reflux disease) HTN (hypertension), benign Hyperlipidemia Surgical History H/O dilation and curettage H/O: hysterectomy S/P rotator cuff repair Family History Other Family history non-contributory Social History Smoking Status: Unknown if ever smoked Hx Alcohol Use: No Hx Substance Use: No Preferred Language: Icelandic Roustabout Required: No Beliefs That Will Affect Care: [facility] Beliefs: [employer] [employer] Current Living Situation: Personal Care Facility Current Living Situation Comment: Patient resides at [facility]. Feels Safe at Home: Yes Assistive Devices: None Allergies Allergies Allergy/AdvReac Type Severity Reaction Status Date / Time morphine AdvReac Severe UPSET Verified 06/24/22 16:51 STOMACH codeine AdvReac Mild N/V Verified 06/24/22 16:51 Home Meds Home Medications Medication Instructions Recorded Confirmed Milk Of Magnesia Susp 7.75% 30 ml PO DIRECTED 06/24/22 06/24/22 acetaminophen 325 mg tablet 650 mg PO AMHS 06/24/22 06/24/22 (Tylenol) acetaminophen 325 mg tablet 650 mg PO Q6 PRN Fever Or Pain 06/24/22 06/24/22 (Tylenol) albuterol sulfate 90 mcg/actuation 2 puff inhalation Q6 PRN Shortness 06/24/22 06/24/22 aerosol inhaler (Ventolin HFA) Of Breath Or Wheezing atorvastatin 10 mg tablet 10 mg PO QPM 06/24/22 06/24/22 glimepiride 1 mg tablet 1 mg PO DAILY 06/24/22 06/24/22 losartan 25 mg tablet 25 mg PO DAILY 06/24/22 06/24/22 metoprolol tartrate 50 mg tablet 50 mg PO BID 06/24/22 06/24/22 omeprazole 20 mg capsule,delayed 20 mg PO DAILY 06/24/22 06/24/22 release pregabalin 75 mg capsule 75 mg PO BID 06/24/22 06/24/22 Results & Data (ED) Vital Signs Vital Signs - 24 hr 06/24/22 14:33 06/24/22 14:33 06/24/22 15:02 Temperature 36.8 C Temperature Source Oral Pulse Rate 150 H Pulse Rate [Apical] 146 H Pulse Rate from SpO2 Sensor Respiratory Rate 20 20 Respiratory Depth Respiratory Pattern Irregular Blood Pressure 142/77 H Blood Pressure [Right Arm] 120/88 Blood Pressure Mean 98 Blood Pressure Mean [Right Arm] 98 Pulse Oximetry 96 96 95 Oxygen Delivery Method Room Air Room Air Room Air Oxygen Flow Rate Sepsis New/Unexplained Change in Mental Status Yes Sepsis Action Taken by Nursing Physician Notified 06/24/22 15:02 06/24/22 15:46 06/24/22 14:49 Temperature Temperature Source Pulse Rate 147 H Pulse Rate [Apical] 128 H Pulse Rate from SpO2 Sensor 152 H Respiratory Rate 16 23 Respiratory Depth Normal Respiratory Pattern Blood Pressure Blood Pressure [Right Arm] 92/75 L Blood Pressure Mean Blood Pressure Mean [Right Arm] 80 Pulse Oximetry 96 92 96 Oxygen Delivery Method Room Air Oxymask Oxygen Flow Rate 2 Sepsis New/Unexplained Change in Mental Status Sepsis Action Taken by Nursing 06/24/22 14:51 06/24/22 14:51 06/24/22 15:00 Temperature Temperature Source Pulse Rate 155 H 150 H Pulse Rate [Apical] Pulse Rate from SpO2 Sensor 153 H Respiratory Rate 18 20 Respiratory Depth Respiratory Pattern Blood Pressure 122/85 Blood Pressure [Right Arm] Blood Pressure Mean 97 Blood Pressure Mean [Right Arm] Pulse Oximetry 97 Oxygen Delivery Method Oxygen Flow Rate Sepsis New/Unexplained Change in Mental Status Sepsis Action Taken by Nursing 06/24/22 15:06 06/24/22 15:06 06/24/22 15:30 Temperature Temperature Source Pulse Rate 137 H 142 H Pulse Rate [Apical] Pulse Rate from SpO2 Sensor 127 H 125 H Respiratory Rate 20 22 Respiratory Depth Respiratory Pattern Blood Pressure 120/88 Blood Pressure [Right Arm] Blood Pressure Mean 98 Blood Pressure Mean [Right Arm] Pulse Oximetry 95 96 Oxygen Delivery Method Oxygen Flow Rate Sepsis New/Unexplained Change in Mental Status Sepsis Action Taken by Nursing 06/24/22 15:31 06/24/22 15:31 06/24/22 16:00 Temperature Temperature Source Pulse Rate 123 H 117 H Pulse Rate [Apical] Pulse Rate from SpO2 Sensor 96 H 140 H Respiratory Rate 21 24 Respiratory Depth Respiratory Pattern Blood Pressure 92/75 L Blood Pressure [Right Arm] Blood Pressure Mean 80 Blood Pressure Mean [Right Arm] Pulse Oximetry 93 95 Oxygen Delivery Method Oxymask Oxygen Flow Rate 3 Sepsis New/Unexplained Change in Mental Status Sepsis Action Taken by Nursing 06/24/22 16:02 06/24/22 16:02 Temperature Temperature Source Pulse Rate 109 H Pulse Rate [Apical] Pulse Rate from SpO2 Sensor 118 H Respiratory Rate 19 Respiratory Depth Respiratory Pattern Blood Pressure 127/61 Blood Pressure [Right Arm] Blood Pressure Mean 83 Blood Pressure Mean [Right Arm] Pulse Oximetry 97 Oxygen Delivery Method Oxygen Flow Rate Sepsis New/Unexplained Change in Mental Status Sepsis Action Taken by Snf Medications Current Medication List: was personally reviewed by me Laboratory Data Attestation: I reviewed the patient's lab results. Result diagrams: 06/24/22 14:50 06/24/22 14:50 Lab Results 06/24/22 06/24/22 06/24/22 Range/Units 14:50 14:50 14:50 WBC 10.91 H (4.8-10.8) K/ul RBC 4.62 (3.93-5.22) M/uL Hgb 13.4 (12.0-16.0) g/dl Hct 40.7 (34.1-44.9) % MCV 88.1 (80.0-100.0) fL MCH 29.0 (25.0-34.0) pg MCHC 32.9 (32.0-36.0) g/dL RDW Std Deviation 44.8 (36.4-46.3) fL RDW Coeff of Batsheva 14.0 (11.5-14.5) % Plt Count 254 (130-400) K/uL MPV 11.1 (9.4-12.3) fL Immature Gran % (Auto) 0.4 % Neut % (Auto) 62.9 % Lymph % (Auto) 26.4 % [place] % (Auto) 9.6 % Eos % (Auto) 0.3 % Baso % (Auto) 0.4 % Neut # (Auto) 6.87 H (1.4-6.5) K/uL Lymph # (Auto) 2.88 (1.2-3.4) K/uL [place] # (Auto) 1.05 H (0.24-0.82) K/uL Eos # (Auto) 0.03 (0-0.50) K/uL Baso # (Auto) 0.04 (0-0.2) K/uL Immature Gran # (Auto) 0.04 H (0.00-0.02) K/uL PT 12.0 (9.0-12.0) Seconds INR 1.1 (0.9-1.1) APTT 23.1 (21.0-31.0) Seconds PTT Ratio 0.8 Sodium 137 (136-145) mmol/L Potassium 4.2 (3.5-5.1) mmol/L Chloride 107 (98-107) mmol/L Carbon Dioxide 19 L (21-32) mmol/L Anion Gap 11 (3-11) BUN 20 (6-23) mg/dl Creatinine 0.85 (0.6-1.2) mg/dl Est Cr Clr Drug Dosing Not Reportable Est GFR ( Amer) 73.4 ml/min Est GFR (Non-Af Amer) 63.4 ml/min BUN/Creatinine Ratio 23.5 H (10-20) Glucose 141 H (70-99(Fasting)) mg/dl POC Glucose (70-99) mg/dl Calcium 8.7 (8.5-10.1) mg/dl Magnesium 2.0 (1.7-2.4) mg/dl Total Bilirubin 1.0 (0.2-1.0) mg/dl AST 17 (13-39) U/L ALT 12 (7-52) U/L Alkaline Phosphatase 75 (34-104) U/L Troponin I High Sens 12.1 (0-14) pg/ml Total Protein 6.7 (6.0-8.3) gm/dl Albumin 3.6 (3.4-5.0) gm/dl Globulin 3.1 (2.5-4.0) gm/dl Albumin/Globulin Ratio 1.2 (0.9-2) Urine Color Urine Appearance (Clear) Urine pH (4.5-7.5) Ur Specific Merrill (1.000-1.030) Urine Protein (Negative) Urine Glucose (UA) (Negative) Urine Ketones (Negative) Urine Blood (Negative) Urine Nitrite (Negative) Urine Bilirubin (Negative) Urine Urobilinogen (Negative) Ur Leukocyte Esterase (Negative) Urine WBC (Auto) (0-5) /hpf Urine RBC (Auto) (0-4) /hpf U Hyaline Cast (Auto) (0-5) /lpf U Epithel Cells (Auto) (0-5) /lpf Urine Bacteria (Auto) (Negative) SARS-CoV-2, RNA, NAAT (NEGATIVE) 06/24/22 06/24/22 06/24/22 Range/Units 14:51 15:12 15:15 WBC (4.8-10.8) K/ul RBC (3.93-5.22) M/uL Hgb (12.0-16.0) g/dl Hct (34.1-44.9) % MCV (80.0-100.0) fL MCH (25.0-34.0) pg MCHC (32.0-36.0) g/dL RDW Std Deviation (36.4-46.3) fL RDW Coeff of Batsheva (11.5-14.5) % Plt Count (130-400) K/uL MPV (9.4-12.3) fL Immature Gran % (Auto) % Neut % (Auto) % Lymph % (Auto) % [place] % (Auto) % Eos % (Auto) % Baso % (Auto) % Neut # (Auto) (1.4-6.5) K/uL Lymph # (Auto) (1.2-3.4) K/uL [place] # (Auto) (0.24-0.82) K/uL Eos # (Auto) (0-0.50) K/uL Baso # (Auto) (0-0.2) K/uL Immature Gran # (Auto) (0.00-0.02) K/uL PT (9.0-12.0) Seconds INR (0.9-1.1) APTT (21.0-31.0) Seconds PTT Ratio Sodium (136-145) mmol/L Potassium (3.5-5.1) mmol/L Chloride (98-107) mmol/L Carbon Dioxide (21-32) mmol/L Anion Gap (3-11) BUN (6-23) mg/dl Creatinine (0.6-1.2) mg/dl Est Cr Clr Drug Dosing Est GFR ( Amer) ml/min Est GFR (Non-Af Amer) ml/min BUN/Creatinine Ratio (10-20) Glucose (70-99(Fasting)) mg/dl POC Glucose 150 H (70-99) mg/dl Calcium (8.5-10.1) mg/dl Magnesium (1.7-2.4) mg/dl Total Bilirubin (0.2-1.0) mg/dl AST (13-39) U/L ALT (7-52) U/L Alkaline Phosphatase (34-104) U/L Troponin I High Sens (0-14) pg/ml Total Protein (6.0-8.3) gm/dl Albumin (3.4-5.0) gm/dl Globulin (2.5-4.0) gm/dl Albumin/Globulin Ratio (0.9-2) Urine Color Yellow Urine Appearance Clear (Clear) Urine pH 5.0 (4.5-7.5) Ur Specific Merrill 1.044 H (1.000-1.030) Urine Protein Trace H (Negative) Urine Glucose (UA) Negative (Negative) Urine Ketones 1+ H (Negative) Urine Blood 1+ H (Negative) Urine Nitrite Negative (Negative) Urine Bilirubin Negative (Negative) Urine Urobilinogen Negative (Negative) Ur Leukocyte Esterase Negative (Negative) Urine WBC (Auto) 5-10 H (0-5) /hpf Urine RBC (Auto) 5-10 H (0-4) /hpf U Hyaline Cast (Auto) 5-10 H (0-5) /lpf U Epithel Cells (Auto) >30 H (0-5) /lpf Urine Bacteria (Auto) Negative (Negative) SARS-CoV-2, RNA, NAAT NEGATIVE (NEGATIVE) Administered Medications Miscellaneous (Check Scopolamine Patch Placement) 1 each N/A QS JERAMY Stop: 07/25/22 00:00 Last Admin: 06/25/22 00:52 Dose: 1 each Documented By: AB Miscellaneous (Check Scopolamine Patch Placement) 1 each N/A Q72H JERAMY Stop: 07/24/22 18:44 Last Admin: 06/24/22 20:28 Dose: 1 each Documented By: SM Morphine Sulfate (Morphine Sulfate 2 Mg/Ml Carp) 2 mg IV Q4H PRN PRN Reason: Pain or Respiratory Distress Stop: 07/08/22 18:37 Last Admin: 06/25/22 06:23 Dose: 2 mg Documented By: Admin: 06/24/22 20:01 Dose: 2 mg Documented By: SAMARA Scopolamine (Scopolamine 1 Mg Tdsy) 1 mg TD Q72H JERAMY Stop: 07/24/22 18:44 Last Admin: 06/24/22 20:28 Dose: 1 mg Documented By: SAMARA Discontinued Medications Piperacillin Sod/Tazobactam Sod (Zosyn) 4.5 gm in 120 mls @ 240 mls/hr IV NOW ONE Stop: 06/24/22 15:33 Last Infusion: 06/24/22 16:02 Dose: 0 mls/hr Documented By: Admin: 06/24/22 15:20 Dose: 240 mls/hr Documented By: MAYURI Sodium Chloride (Nss 1000ml) 1,000 mls @ 999 mls/hr IV .Q1H1M ONE Stop: 06/24/22 16:17 Last Infusion: 06/24/22 16:34 Dose: 0 mls/hr Documented By: Admin: 06/24/22 15:20 Dose: 999 mls/hr Documented By: MAYURI Ioversol (Optiray 300 500ml) 109 ml IV ONCE ONE Stop: 06/24/22 14:47 Last Admin: 06/24/22 14:46 Dose: 109 ml Documented By: ALEXANDER Ondansetron HCl (Ondansetron Inj 2 Mg/Ml 2 Ml Vial) 4 mg IV NOW STA Stop: 06/24/22 15:18 Last Admin: 06/24/22 15:19 Dose: Not Given Documented By: MAYURI Ondansetron HCl (Ondansetron Inj 2 Mg/Ml 2 Ml Vial) Confirm Administered Dose 4 mg .ROUTE .STK-MED ONE Stop: 06/24/22 15:19 Last Admin: 06/24/22 15:20 Dose: 4 mg Documented By: MAYURI Imaging Data Radiologist's Impression: Chest X-Ray 06/24/22 14:31 SINGLE VIEW CHEST CLINICAL HISTORY: Stroke FINDINGS: An AP, portable, semierect chest radiograph is compared to study dated 03/31/2021. The examination is degraded by portable technique and patient rotation. The heart is mildly enlarged noting atherosclerotic calcification of the thoracic aorta. The pulmonary vasculature is noncongested. Chronic interstitial thickening similar to previous. Scarring/atelectasis is noted at the lung bases. The lungs and pleural spaces are otherwise clear. No pneumothorax is seen. The skeletal structures are osteopenic. The bony thorax is grossly intact. Arthritic change is seen in the shoulders. IMPRESSION: Cardiomegaly with no acute cardiopulmonary abnormality identified. ACT 112: Negative or not required by law. Electronically signed by: Andrew Cummins M.D. 06/24/2022 3:[address] 06/24/22 14:31 CT SCAN OF THE BRAIN WITHOUT IV CONTRAST CLINICAL HISTORY: Strokelike symptoms. COMPARISON STUDY: CT of the brain dated 03/31/2021. TECHNIQUE: Unenhanced axial CT scan of the brain is performed from the vertex to the skull base. A dose lowering technique was utilized adhering to the principles of ALARA. FINDINGS: Brain parenchyma: There is diffuse loss of vee-white matter differentiation seen throughout the right MCA territory consistent with a large subacute infarct. There is associated edema with effacement of the overlying cortical sulci. There is also a subacute infarct in the left occipital lobe. There is age-related involutional change noting mild to moderate subcortical and periventricular microangiopathic disease. There is no hemorrhage or midline shift. No extra-axial fluid collection is seen. Ventricles, sulci, cisterns: Prominent secondary to involutional change. Intracranial vasculature: There is atherosclerotic calcification of the cavernous carotid arteries.. Calvarium: Unremarkable. Sinuses and mastoids: There is trace mucosal thickening within the maxillary antra. The remaining paranasal sinuses are clear. The mastoid air cells are well pneumatized. Orbits: The bony orbits are grossly intact. There is a left ocular lens implant. IMPRESSION: 1. Large subacute right MCA territory infarct. 2. There is also a subacute left occipital lobe infarct. 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 3. No hemorrhage or midline shift is identified. ACT 112: Negative or not required by law. Electronically signed by: Andrew Cummins M.D. 06/24/2022 2:47 PM Head CTA 06/24/22 14:31 CT ANGIOGRAM OF THE BRAIN; CT ANGIOGRAM OF THE NECK CLINICAL HISTORY: Stroke COMPARISON STUDY: Unenhanced CT of the brain performed concurrently on 06/24/2022. TECHNIQUE: Following the IV administration of 109 of Optiray 320, CT angiogram of the head and neck was performed from the aortic arch to the vertex. Images are reviewed in the axial, sagittal, and coronal planes. 3-D MIPS images are created and assessed. IV contrast was administered without complication. All measurements were calculated based on NASCET criteria. A dose lowering technique was utilized adhering to the principles of ALARA. CT DOSE: 1308.46 mGy.cm FINDINGS: Brain parenchyma: There is extensive loss of vee-white matter differentiation throughout the right MCA territory indicating subacute ischemia. There is edema with effacement of the overlying cortical sulci. There is also a subacute stroke involving the left occipital lobe. No hemorrhage or midline shift is identified. There is no evidence of enhancing mass lesion on the angiogram phase images. The ventricles, sulci, and cisterns are prominent secondary to involutional change. There is age-related involutional change noting [id number] subcortical and periventricular microangiopathic disease. No extra-axial fluid collection is seen. Thoracic aorta: There is atherosclerotic calcification of the thoracic aorta. Visualized portions of the thoracic aorta are normal in caliber. The aortic arch demonstrates standard 3-vessel anatomy. Right carotid arterial system: The right common carotid artery is patent, as are the right internal and external carotid arteries. Advanced calcified plaque in the carotid bulb causes less than 50% luminal narrowing at the origin of the right internal carotid artery. Left carotid arterial system: The left common carotid artery is widely patent, as are the left internal and external carotid arteries. Calcified plaque is noted in the carotid bulb. Vertebral arteries: The vertebral arteries are widely patent bilaterally noting left-sided dominance. Subclavian arteries: Widely patent bilaterally. Intracranial vasculature: The internal carotid arteries are patent at the skull base, as are the anterior and left middle cerebral arteries bilaterally. There is a large thrombus within the proximal right middle cerebral artery, best seen on axial image #153. The vertebrobasilar system and posterior cerebral arteries are widely patent. The left vertebral artery is dominant. The right vertebral artery at the skull base is diminutive. There is a right posterior communicating artery. There no aneurysm identified. Jugular veins: Patent bilaterally. Dural sinuses: Patent. Lung apices: Calcified granulomas are noted in the right upper lobe. Upper lobe lung parenchyma is otherwise clear as imaged. Soft tissues: The visualized pharyngeal soft tissues are normal in appearance noting angiographic phase technique. The oropharyngeal airway appears widely patent. The thyroid gland is heterogeneous. The salivary glands are normal in appearance. No cervical lymphadenopathy is seen. Skeletal structures: The skeletal structures are osteopenic. The calvarium appears intact. The cervical spine is maintained noting multilevel spondylosis. No lytic or blastic lesion is seen. Orbits: The bony orbits are intact. Orbital contents are normal as visualized noting a left ocular lens implant. Sinuses and mastoids: Trace mucosal thickening is noted in the maxillary antra. The remaining paranasal sinuses are clear. The mastoid air cells are well pneumatized. IMPRESSION: 1. There is a large subacute right MCA territory infarct. 2. There is also a small subacute left occipital infarct. 3. 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 The remaining intracranial vessels are patent. 5. Atherosclerotic plaque causes less than 50% luminal narrowing at the origin of the right ICA. 6. Otherwise unremarkable CT angiogram of the neck. 7. There is no hemorrhage or midline shift. ACT 112: Negative or not required by law. Electronically signed by: Andrew Cummins M.D. 06/24/2022 2:59 PM Neck CTA 06/24/22 14:31 CT ANGIOGRAM OF THE BRAIN; CT ANGIOGRAM OF THE NECK CLINICAL HISTORY: Stroke COMPARISON STUDY: Unenhanced CT of the brain performed concurrently on 06/24/2022. TECHNIQUE: Following the IV administration of 109 of Optiray 320, CT angiogram of the head and neck was performed from the aortic arch to the vertex. Images are reviewed in the axial, sagittal, and coronal planes. 3-D MIPS images are created and assessed. IV contrast was administered without complication. All measurements were calculated based on NASCET criteria. A dose lowering technique was utilized adhering to the principles of ALARA. CT DOSE: 1308.46 mGy.cm FINDINGS: Brain parenchyma: There is extensive loss of vee-white matter differentiation throughout the right MCA territory indicating subacute ischemia. There is edema with effacement of the overlying cortical sulci. There is also a subacute stroke involving the left occipital lobe. No hemorrhage or midline shift is identified. There is no evidence of enhancing mass lesion on the angiogram phase images. The ventricles, sulci, and cisterns are prominent secondary to involutional change. There is age-related involutional change noting [id number] subcortical and periventricular microangiopathic disease. No extra-axial fluid collection is seen. Thoracic aorta: There is atherosclerotic calcification of the thoracic aorta. Visualized portions of the thoracic aorta are normal in caliber. The aortic arch demonstrates standard 3-vessel anatomy. Right carotid arterial system: The right common carotid artery is patent, as are the right internal and external carotid arteries. Advanced calcified plaque in the carotid bulb causes less than 50% luminal narrowing at the origin of the right internal carotid artery. Left carotid arterial system: The left common carotid artery is widely patent, as are the left internal and external carotid arteries. Calcified plaque is noted in the carotid bulb. Vertebral arteries: The vertebral arteries are widely patent bilaterally noting left-sided dominance. Subclavian arteries: Widely patent bilaterally. Intracranial vasculature: The internal carotid arteries are patent at the skull base, as are the anterior and left middle cerebral arteries bilaterally. There is a large thrombus within the proximal right middle cerebral artery, best seen on axial image #153. The vertebrobasilar system and posterior cerebral arteries are widely patent. The left vertebral artery is dominant. The right vertebral artery at the skull base is diminutive. There is a right posterior communicating artery. There no aneurysm identified. Jugular veins: Patent bilaterally. Dural sinuses: Patent. Lung apices: Calcified granulomas are noted in the right upper lobe. Upper lobe lung parenchyma is otherwise clear as imaged. Soft tissues: The visualized pharyngeal soft tissues are normal in appearance no ting angiographic phase technique. The oropharyngeal airway appears widely patent. The thyroid gland is heterogeneous. The salivary glands are normal in appearance. No cervical lymphadenopathy is seen. Skeletal structures: The skeletal structures are osteopenic. The calvarium appears intact. The cervical spine is maintained noting multilevel spondylosis. No lytic or blastic lesion is seen. Orbits: The bony orbits are intact. Orbital contents are normal as visualized noting a left ocular lens implant. Sinuses and mastoids: Trace mucosal thickening is noted in the maxillary antra. The remaining paranasal sinuses are clear. The mastoid air cells are well pneumatized. IMPRESSION: 1. There is a large subacute right MCA territory infarct. 2. There is also a small subacute left occipital infarct. 3. 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 The remaining intracranial vessels are patent. 5. Atherosclerotic plaque causes less than 50% luminal narrowing at the origin of the right ICA. 6. Otherwise unremarkable CT angiogram of the neck. 7. There is no hemorrhage or midline shift. ACT 112: Negative or not required by law. Electronically signed by: Andrew Cummins M.D. 06/24/2022 2:59 PM Discharge Plan Visit Data Chief Complaint: Stroke Alert Stated Complaint: stroke alert ED Provider: Baldemar Rob Discharge Problem: Acute ischemic stroke, Acute ischemic right MCA stroke, Atrial fibrillation wi th rapid ventricular response Patient Disposition: Admitted As Inpatient Discharge Instructions Interventions: ED Discharge Assessment Last Done: 06/24/22 18:41
--- NOTE | 2022-06-24 15:02 | CT Scan Report ---
CT ANGIOGRAM OF THE BRAIN; CT ANGIOGRAM OF THE NECK CLINICAL HISTORY: Stroke COMPARISON STUDY: Unenhanced CT of the brain performed concurrently on 06/24/2022. TECHNIQUE: Following the IV administration of 109 of Optiray 320, CT angiogram of the head and neck w as performed from the aortic arch to the vertex. Images are reviewed in the axial, sagittal, and katarina nal planes. 3-D MIPS images are created and assessed. IV contrast was administered without complicati on. All measurements were calculated based on NASCET criteria. A dose lowering technique was utilize d adhering to the principles of ALARA. CT DOSE: 1308.46 mGy.cm FINDINGS: Brain parenchyma: There is extensive loss of vee-white matter differentiation throughout the right M CA territory indicating subacute ischemia. There is edema with effacement of the overlying cortical s ulci. There is also a subacute stroke involving the left occipital lobe. No hemorrhage or midline derek ft is identified. There is no evidence of enhancing mass lesion on the angiogram phase images. The ve ntricles, sulci, and cisterns are prominent secondary to involutional change. There is age-related in volutional change noting [id number] subcortical and periventricular microangiopathic disease. N o extra-axial fluid collection is seen. Thoracic aorta: There is atherosclerotic calcification of the thoracic aorta. Visualized portions of the thoracic aorta are normal in caliber. The aortic arch demonstrates standard 3-vessel anatomy. Right carotid arterial system: The right common carotid artery is patent, as are the right internal a nd external carotid arteries. Advanced calcified plaque in the carotid bulb causes less than 50% patrick nal narrowing at the origin of the right internal carotid artery. Left carotid arterial system: The left common carotid artery is widely patent, as are the left design intern al and external carotid arteries. Calcified plaque is noted in the carotid bulb. Vertebral arteries: The vertebral arteries are widely patent bilaterally noting left-sided dominance. Subclavian arteries: Widely patent bilaterally. Intracranial vasculature: The internal carotid arteries are patent at the skull base, as are the ante rior and left middle cerebral arteries bilaterally. There is a large thrombus within the proximal rig ht middle cerebral artery, best seen on axial image #153. The vertebrobasilar system and posterior ce rebral arteries are widely patent. The left vertebral artery is dominant. The right vertebral artery at the skull base is diminutive. There is a right posterior communicating artery. There no aneurysm i dentified. Jugular veins: Patent bilaterally. Dural sinuses: Patent. Lung apices: Calcified granulomas are noted in the right upper lobe. Upper lobe lung parenchyma is ot herwise clear as imaged. Soft tissues: The visualized pharyngeal soft tissues are normal in appearance noting angiographic pha se technique. The oropharyngeal airway appears widely patent. The thyroid gland is heterogeneous. The salivary glands are normal in appearance. No cervical lymphadenopathy is seen. Skeletal structures: The skeletal structures are osteopenic. The calvarium appears intact. The cervic al spine is maintained noting multilevel spondylosis. No lytic or blastic lesion is seen. Orbits: The bony orbits are intact. Orbital contents are normal as visualized noting a left ocular le ns implant. Sinuses and mastoids: Trace mucosal thickening is noted in the maxillary antra. The remaining paranas al sinuses are clear. The mastoid air cells are well pneumatized. IMPRESSION: 1. There is a large subacute right MCA territory infarct. 2. There is also a small subacute left occipital infarct. 3. 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 The remaining intracranial vessels are patent. 5. Atherosclerotic plaque causes less than 50% luminal narrowing at the origin of the right ICA. 6. Otherwise unremarkable CT angiogram of the neck. 7. There is no hemorrhage or midline shift. ACT 112: Negative or not required by law. Electronically signed by: Andrew Cummins M.D. 06/24/2022 2:59 PM
[2022-06-24] MEDS ORDERED: PIPERACILLIN/TAZOBACTAM 4.5 GM/120 ML BAG IV ONE (15:04)
--- NOTE | 2022-06-24 15:11 | Electrocardiogram Report ---
Test Reason : Blood Pressure : / mmHG Vent. Rate : 145 BPM Atrial Rate : 166 BPM P-R Int : 000 ms QRS Dur : 070 ms QT Int : 254 ms P-R-T Axes : 000 046 -15 degrees QTc Int : 394 ms Atrial fibrillation with rapid ventricular response Abnormal ECG When compared with ECG of 31-MAR-2021 09:20, Atrial fibrillation has replaced Sinus rhythm Vent. rate has increased BY 85 BPM Non-specific change in ST segment in Lateral leads Confirmed by Baldemar Lorenzo ([id number]) on 06/24/2022 3:11:16 PM Referred By: Confirmed By:Baldemar Lorenzo
[2022-06-24 15:16] LABS: INR 1.1 (0.9-1.1); Partial Thromboplastin Ratio 0.8; Partial Thromboplastin Time 23.1 Seconds (21.0-31.0)
[2022-06-24] MEDS ORDERED: SODIUM CHLORIDE 0.9% 1000ML 1,000 ML IV ONE (15:17)
[2022-06-24] MEDS ORDERED: ONDANSETRON INJ 2 MG/ML 2 ML VIAL IV STA (15:17)
--- NOTE | 2022-06-24 15:17 | XRay Report ---
SINGLE VIEW CHEST CLINICAL HISTORY: Stroke FINDINGS: An AP, portable, semierect chest radiograph is compared to study dated 03/31/2021. The exami nation is degraded by portable technique and patient rotation. The heart is mildly enlarged noting a therosclerotic calcification of the thoracic aorta. The pulmonary vasculature is noncongested. Chroni c interstitial thickening similar to previous. Scarring/atelectasis is noted at the lung bases. The l ungs and pleural spaces are otherwise clear. No pneumothorax is seen. The skeletal structures are ost eopenic. The bony thorax is grossly intact. Arthritic change is seen in the shoulders. IMPRESSION: Cardiomegaly with no acute cardiopulmonary abnormality identified. ACT 112: Negative or not required by law. Electronically signed by: Andrew Cummins M.D. 06/24/2022 3:16 PM
[2022-06-24] MEDS ORDERED: ONDANSETRON INJ 2 MG/ML 2 ML VIAL ONE (15:18)
[2022-06-24 15:35] LABS: Troponin I High Sensitivity 12.1 pg/ml (0-14)
[2022-06-24 15:41] LABS: Alanine Aminotransferase 12 U/L (7-52); Albumin Globulin Ratio 1.2 (0.9-2); Albumin Level 3.6 gm/dl (3.4-5.0); Alkaline Phosphatase 75 U/L (34-104); Anion Gap 11 (3-11); Aspartate Aminotransferase 17 U/L (13-39); BUN Creatinine Ratio 23.5 (10-20); Blood Urea Nitrogen 20 mg/dl (6-23); Calcium 8.7 mg/dl (8.5-10.1); Carbon Dioxide 19 mmol/L (21-32); Chloride 107 mmol/L (98-107); Est GFR (African American) 73.4 ml/min; Est GFR (Non-African American) 63.4 ml/min; Globulin 3.1 gm/dl (2.5-4.0); Glucose 141 mg/dl (70-99(Fasting)); Potassium 4.2 mmol/L (3.5-5.1); Sodium 137 mmol/L (136-145); Total Protein 6.7 gm/dl (6.0-8.3)
--- NOTE | 2022-06-24 15:41 | History & Physical Report ---
Date of Service June 24, 2022 Assessment & Plan (1) Acute ischemic stroke: Plan: - Head CT showed a large subacute right MCA territorial infarct, as well as subacute left occipital lobe infarct, head/neck CTA identified a large thrombus occluding the proximal right MCA. - LKW 8 AM this morning. Patient with noted L sided deficits by staff at [facility] this afternoon. - Case, including labs and imaging, was discussed with Dr. Nevarez, the [facility] telestroke neurologist; she is out of the window for thrombolytics, and based on the large changes already seen on CT, she would not be a candidate for thrombectomy. - Given patient's age, comorbidities, extent of CVA and deficits--it was discussed with family that patient has a poor prognosis. Her daughter states to me that they have been preparing for something like this to happen, given her severe demtnia, age, and multiple medical issues. Given this and in order to honor patient's wishes, they would like to move to comfort measures only in an effort to keep this patient as comfortable as possible, understanding that further intervention would likely require intubation and would not result in meaningful recovery. - Morphine ordered prn for pain or respiratory distress, Ativan prn for agitation, scopolamine for secretions. (2) Atrial fibrillation with rapid ventricular response: Plan: - Patient presented to ED in A. fib RVR with HR 146 appears to be a new diagnosis for patient, likely the cause of her b/l vascular territory infarcts. - Defer cardiology consult/further intervention as patient is being transitioned to comfort measures, as above. (3) HTN (hypertension), benign: Plan: - Previous medications include losartan, metoprolol. - D/C these as patient has been moved to comfort measures. (4) Hyperlipidemia: Plan: - Previously on atorvastatin and fenofibrate. - D/C these as patient has been moved to comfort measures. (5) GERD (gastroesophageal reflux disease): Plan: - Previously on omeprazole. - D/C these as patient has been moved to comfort measures. (6) Diabetes mellitus: Plan: - Previously on atorvastatin and fenofibrate. - D/C these, as well as BGS as patient has been moved to comfort measures. (7) Dementia: Plan: - Severe, per patient's family. Plan - Admit to med/surg with comfort measures. History of Present Illness Chief Complaint: left sided weakness Primary Care Provider: [facility] Marlene Mendoza is an 81-year-old female with a past medical history significant for DM2, hyperlipidemia, hypertension, dementia, and GERD who presents today from [facility] via EMS as a stroke alert. Patient was seen at 8 AM in her normal state of health, however when she was checked on this afternoon she was having left-sided facial droop and weakness. On arrival, patient is unresponsive and unable to follow commands. Over the weekend, she had been having periods of apnea, and has been treated for the past 10 days for COVID19, receiving Paxlovid. Otherwise, she does have severe dementia at baseline, however has previously been able to ambulate with assistance. Upon presentation, patient presented with HR 146, found to be in A. fib RVR on EKG. Head CT shows a large subacute right MCA territory infarct, as well as subacute left subdural lobe infarct, no hemorrhage or midline shift identified. Head and neck CTA revealed a large thrombus occluding the proximal right MCA with <50% luminal narrowing of the right RCA. Allergies Allergy/AdvReac Type Severity Reaction Status Date / Time morphine AdvReac Severe UPSET Verified 06/24/22 16:51 STOMACH codeine AdvReac Mild N/V Verified 06/24/22 16:51 Home Medications Medication Instructions Recorded Confirmed Type Milk Of Magnesia Susp 7.75% 30 ml PO DIRECTED 06/24/22 06/24/22 History acetaminophen 325 mg tablet 650 mg PO AMHS 06/24/22 06/24/22 History (Tylenol) acetaminophen 325 mg tablet 650 mg PO Q6 PRN Fever Or Pain 06/24/22 06/24/22 History (Tylenol) albuterol sulfate 90 mcg/actuation 2 puff inhalation Q6 PRN Shortness 06/24/22 06/24/22 History aerosol inhaler (Ventolin HFA) Of Breath Or Wheezing atorvastatin 10 mg tablet 10 mg PO QPM 06/24/22 06/24/22 History glimepiride 1 mg tablet 1 mg PO DAILY 06/24/22 06/24/22 History losartan 25 mg tablet 25 mg PO DAILY 06/24/22 06/24/22 History metoprolol tartrate 50 mg tablet 50 mg PO BID 06/24/22 06/24/22 History omeprazole 20 mg capsule,delayed 20 mg PO DAILY 06/24/22 06/24/22 History release pregabalin 75 mg capsule 75 mg PO BID 06/24/22 06/24/22 History Past Med/Surg History Medical History Dementia Diabetes mellitus GERD (gastroesophageal reflux disease) HTN (hypertension), benign Hyperlipidemia Surgical History H/O dilation and curettage H/O: hysterectomy S/P rotator cuff repair Family History Other Family history non-contributory Social History Smoking Status: Unknown if ever smoked Hx Alcohol Use: No Hx Substance Use: No Preferred Language: Occitan [employer] Required: No Beliefs That Will Affect Care: Congregational Congregational Beliefs: [facility] [employer] Current Living Situation: Personal Care Facility Current Living Situation Comment: Patient resides at [facility]. Feels Safe at Home: Yes Assistive Devices: None Review of Systems Review of Systems: Unobtainable due to reduced consciousness Physical Exam Physical Exam: General: Patient is unresponsive, unable to follow basic commands, appears comfortable Head: Normocephalic, atraumatic ENT: PERRL, no pharyngeal exudate, mucous membranes moist Chest: Diminished breath sounds throughout without adventitious breath sounds appreciated Cardiac: Irregular rate and rhythm consistent with A. fib; no murmur, no JVD, normal peripheral pulses, good capillary refill Abdominal: NABS x 4 quadrants, soft, nontender to palpation, no rebound, guarding or tenderness Extremities: Normal inspection, no peripheral edema or erythema, calfs nontender to palpation Neuro: Patient is unresponsive, unable to follow basic commands, no movement in left upper or lower extremity, Skin: no rash or erythema Results & Data Results & Data ([facility]) Vital Signs (Past 12 Hours) Vital Signs Temp Pulse Pulse Resp BP BP Pulse Ox 06/24/22 15:02 96 06/24/22 15:02 146 H 20 120/88 95 06/24/22 14:33 96 06/24/22 14:33 36.8 C 150 H 20 142/77 H 96 O2 Del Method 06/24/22 15:02 Room Air 06/24/22 15:02 Room Air 06/24/22 14:33 Room Air 06/24/22 14:33 Room Air Laboratory Results Abnormal lab results 06/24/22 06/24/22 06/24/22 Range/Units 14:50 14:50 14:51 WBC 10.91 H (4.8-10.8) K/ul Neut # (Auto) 6.87 H (1.4-6.5) K/uL [place] # (Auto) 1.05 H (0.24-0.82) K/uL Immature Gran # (Auto) 0.04 H (0.00-0.02) K/uL Carbon Dioxide 19 L (21-32) mmol/L BUN/Creatinine Ratio 23.5 H (10-20) Glucose 141 H (70-99(Fasting)) mg/dl POC Glucose 150 H (70-99) mg/dl Ur Specific Casey (1.000-1.030) Urine Protein (Negative) Urine Ketones (Negative) Urine Blood (Negative) Urine WBC (Auto) (0-5) /hpf Urine RBC (Auto) (0-4) /hpf U Hyaline Cast (Auto) (0-5) /lpf U Epithel Cells (Auto) (0-5) /lpf 06/24/22 Range/Units 15:15 WBC (4.8-10.8) K/ul Neut # (Auto) (1.4-6.5) K/uL [place] # (Auto) (0.24-0.82) K/uL Immature Gran # (Auto) (0.00-0.02) K/uL Carbon Dioxide (21-32) mmol/L BUN/Creatinine Ratio (10-20) Glucose (70-99(Fasting)) mg/dl POC Glucose (70-99) mg/dl Ur Specific Casey 1.044 H (1.000-1.030) Urine Protein Trace H (Negative) Urine Ketones 1+ H (Negative) Urine Blood 1+ H (Negative) Urine WBC (Auto) 5-10 H (0-5) /hpf Urine RBC (Auto) 5-10 H (0-4) /hpf U Hyaline Cast (Auto) 5-10 H (0-5) /lpf U Epithel Cells (Auto) >30 H (0-5) /lpf Diagnostic Findings Chest X-Ray 06/24/22 14:31 SINGLE VIEW CHEST CLINICAL HISTORY: Stroke FINDINGS: An AP, portable, semierect chest radiograph is compared to study dated 03/31/2021. The examination is degraded by portable technique and patient rotatio n. The heart is mildly enlarged noting atherosclerotic calcification of the thoracic aorta. The pulmonary vasculature is noncongested. Chronic interstitial thickening similar to previous. Scarring/atelectasis is noted at the lung bases. The lungs and pleural spaces are otherwise clear. No pneumothorax is seen. The skeletal structures are osteopenic. The bony thorax is grossly intact. Arthritic change is seen in the shoulders. IMPRESSION: Cardiomegaly with no acute cardiopulmonary abnormality identified. ACT 112: Negative or not required by law. Electronically signed by: Andrew Cummins M.D. 06/24/2022 3:[address] 06/24/22 14:31 CT SCAN OF THE BRAIN WITHOUT IV CONTRAST CLINICAL HISTORY: Strokelike symptoms. COMPARISON STUDY: CT of the brain dated 03/31/2021. TECHNIQUE: Unenhanced axial CT scan of the brain is performed from the vertex to the skull base. A dose lowering technique was utilized adhering to the principles of ALARA. FINDINGS: Brain parenchyma: There is diffuse loss of vee-white matter differentiation seen throughout the right MCA territory consistent with a large subacute infarct. There is associated edema with effacement of the overlying cortical sulci. There is also a subacute infarct in the left occipital lobe. There is age-related involutional change noting mild to moderate subcortical and periventricular microangiopathic disease. There is no hemorrhage or midline shift. No extra-axial fluid collection is seen. Ventricles, sulci, cisterns: Prominent secondary to involutional change. Intracranial vasculature: There is atherosclerotic calcification of the cavernous carotid arteries.. Calvarium: Unremarkable. Sinuses and mastoids: There is trace mucosal thickening within the maxillary antra. The remaining paranasal sinuses are clear. The mastoid air cells are well pneumatized. Orbits: The bony orbits are grossly intact. There is a left ocular lens implant. IMPRESSION: 1. Large subacute right MCA territory infarct. 2. There is also a subacute left occipital lobe infarct. 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 3. No hemorrhage or midline shift is identified. ACT 112: Negative or not required by law. Electronically signed by: Andrew Cummins M.D. 06/24/2022 2:47 PM Head CTA 06/24/22 14:31 CT ANGIOGRAM OF THE BRAIN; CT ANGIOGRAM OF THE NECK CLINICAL HISTORY: Stroke COMPARISON STUDY: Unenhanced CT of the brain performed concurrently on 06/24/2022. TECHNIQUE: Following the IV administration of 109 of Optiray 320, CT angiogram of the head and neck was performed from the aortic arch to the vertex. Images are reviewed in the axial, sagittal, and coronal planes. 3-D MIPS images are cre ated and assessed. IV contrast was administered without complication. All measurements were calculated based on NASCET criteria. A dose lowering technique was utilized adhering to the principles of ALARA. CT DOSE: 1308.46 mGy.cm FINDINGS: Brain parenchyma: There is extensive loss of vee-white matter differentiation throughout the right MCA territory indicating subacute ischemia. There is edema with effacement of the overlying cortical sulci. There is also a subacute stroke involving the left occipital lobe. No hemorrhage or midline shift is identified. There is no evidence of enhancing mass lesion on the angiogram phase images. The ventricles, sulci, and cisterns are prominent secondary to involutional change. There is age-related involutional change noting [id number] subcortical and periventricular microangiopathic disease. No extra-axial fluid collection is seen. Thoracic aorta: There is atherosclerotic calcification of the thoracic aorta. Visualized portions of the thoracic aorta are normal in caliber. The aortic arch demonstrates standard 3-vessel anatomy. Right carotid arterial system: The right common carotid artery is patent, as are the right internal and external carotid arteries. Advanced calcified plaque in the carotid bulb causes less than 50% luminal narrowing at the origin of the right internal carotid artery. Left carotid arterial system: The left common carotid artery is widely patent, as are the left internal and external carotid arteries. Calcified plaque is noted in the carotid bulb. Vertebral arteries: The vertebral arteries are widely patent bilaterally noting left-sided dominance. Subclavian arteries: Widely patent bilaterally. Intracranial vasculature: The internal carotid arteries are patent at the skull base, as are the anterior and left middle cerebral arteries bilaterally. There is a large thrombus within the proximal right middle cerebral artery, best seen on axial image #153. The vertebrobasilar system and posterior cerebral arteries are widely patent. The left vertebral artery is dominant. The right vertebral artery at the skull base is diminutive. There is a right posterior communicating artery. There no aneurysm identified. Jugular veins: Patent bilaterally. Dural sinuses: Patent. Lung apices: Calcified granulomas are noted in the right upper lobe. Upper lobe lung parenchyma is otherwise clear as imaged. Soft tissues: The visualized pharyngeal soft tissues are normal in appearance noting angiographic phase technique. The oropharyngeal airway appears widely patent. The thyroid gland is heterogeneous. The salivary glands are normal in appearance. No cervical lymphadenopathy is seen. Skeletal structures: The skeletal structures are osteopenic. The calvarium appears intact. The cervical spine is maintained noting multilevel spondylosis. No lytic or blastic lesion is seen. Orbits: The bony orbits are intact. Orbital contents are normal as visualized noting a left ocular lens implant. Sinuses and mastoids: Trace mucosal thickening is noted in the maxillary antra. The remaining paranasal sinuses are clear. The mastoid air cells are well pneumatized. IMPRESSION: 1. There is a large subacute right MCA territory infarct. 2. There is also a small subacute left occipital infarct. 3. 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 The remaining intracranial vessels are patent. 5. Atherosclerotic plaque causes less than 50% luminal narrowing at the origin of the right ICA. 6. Otherwise unremarkable CT angiogram of the neck. 7. There is no hemorrhage or midline shift. ACT 112: Negative or not required by law. Electronically signed by: Andrew Cummins M.D. 06/24/2022 2:59 PM Neck CTA 06/24/22 14:31 CT ANGIOGRAM OF THE BRAIN; CT ANGIOGRAM OF THE NECK CLINICAL HISTORY: Stroke COMPARISON STUDY: Unenhanced CT of the brain performed concurrently on 06/24/2022. TECHNIQUE: Following the IV administration of 109 of Optiray 320, CT angiogram of the head and neck was performed from the aortic arch to the vertex. Images are reviewed in the axial, sagittal, and coronal planes. 3-D MIPS images are created and assessed. IV contrast was administered without complication. All measurements were calculated based on NASCET criteria. A dose lowering technique was utilized adhering to the principles of ALARA. CT DOSE: 1308.46 mGy.cm FINDINGS: Brain parenchyma: There is extensive loss of vee-white matter differentiation throughout the right MCA territory indicating subacute ischemia. There is edema with effacement of the overlying cortical sulci. There is also a subacute stroke involving the left occipital lobe. No hemorrhage or midline shift is identified. There is no evidence of enhancing mass lesion on the angiogram phase images. The ventricles, sulci, and cisterns are prominent secondary to involutional change. There is age-related involutional change noting [id number] subcortical and periventricular microangiopathic disease. No extra-axial fluid collection is seen. Thoracic aorta: There is atherosclerotic calcification of the thoracic aorta. Visualized portions of the thoracic aorta are normal in caliber. The aortic arch demonstrates standard 3-vessel anatomy. Right carotid arterial system: The right common carotid artery is patent, as are the right internal and external carotid arteries. Advanced calcified plaque in the carotid bulb causes less than 50% luminal narrowing at the origin of the right internal carotid artery. Left carotid arterial system: The left common carotid artery is widely patent, as are the left internal and external carotid arteries. Calcified plaque is noted in the carotid bulb. Vertebral arteries: The vertebral arteries are widely patent bilaterally noting left-sided dominance. Subclavian arteries: Widely patent bilaterally. Intracranial vasculature: The internal carotid arteries are patent at the skull base, as are the anterior and left middle cerebral arteries bilaterally. There is a large thrombus within the proximal right middle cerebral artery, best seen on axial image #153. The vertebrobasilar system and posterior cerebral arteries are widely patent. The left vertebral artery is dominant. The right vertebral artery at the skull base is diminutive. There is a right posterior communicating artery. There no aneurysm identified. Jugular veins: Patent bilaterally. Dural sinuses: Patent. Lung apices: Calcified granulomas are noted in the right upper lobe. Upper lobe lung parenchyma is otherwise clear as imaged. Soft tissues: The visualized pharyngeal soft tissues are normal in appearance noting angiographic phase technique. The oropharyngeal airway appears widely patent. The thyroid gland is heterogeneous. The salivary glands are normal in appearance. No cervical lymphadenopathy is seen. Skeletal structures: The skeletal structures are osteopenic. The calvarium appears intact. The cervical spine is maintained noting multilevel spondylosis. No lytic or blastic lesion is seen. Orbits: The bony orbits are intact. Orbital contents are normal as visualized noting a left ocular lens implant. Sinuses and mastoids: Trace mucosal thickening is noted in the maxillary antra. The remaining paranasal sinuses are clear. The mastoid air cells are well pneumatized. IMPRESSION: 1. There is a large subacute right MCA territory infarct. 2. There is also a small subacute left occipital infarct. 3. 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 The remaining intracranial vessels are patent. 5. Atherosclerotic plaque causes less than 50% luminal narrowing at the origin of the right ICA. 6. Otherwise unremarkable CT angiogram of the neck. 7. There is no hemorrhage or midline shift. ACT 112: Negative or not required by law. Electronically signed by: Andrew Cummins M.D. 06/24/2022 2:59 PM ECG Additional Comments: Atrial fibrillation with rapid ventricular response Abnormal ECG When compared with ECG of 31-MAR-2021 09:20, Atrial fibrillation has replaced Sinus rhythm Vent. rate has increased BY 85 BPM Non-specific change in ST segment in Lateral leads Confirmed by Baldemar Lorenzo ([id number]) on 06/24/2022 3:11:16 PM. Code Status & VTE Plan Code Status DNR/DNI. Supervising Physician Co-Signing Physician Notes I supervised Sobeida Morrissey PA-C on the care of this patient. I interviewed and examined the patient independently of her. The plan is as written in her note except for any following changes/exceptions: None 81yo F w/ likely embolic stroke from newly diagnosed afib. Patient unresponsive on my exam. Family in room and in agreement with comfort measures. Presently a ppears comfortable. PG Care Time/CCT Total # of Minutes Spent Total Time Spent with Patient: Total time spent is greater than 50% in coordination of care (as documented) at patient's floor/unit and/or counseling patient: Coding Level of Care Code 55887 Initial Inpt Care Lvl 2 Diagnoses Acute ischemic stroke I63.9 Atrial fibrillation with rapid ventricular response I48.91 HTN (hypertension), benign I10 Hyperlipidemia E78.5 GERD (gastroesophageal reflux disease) K21.9 Diabetes mellitus E11.9 Dementia F03.90
[2022-06-24 15:43] LABS: Appearance Urine Clear (Clear); Bacteria Urine Automated Negative (Negative); Bilirubin Urine Negative (Negative); Blood Urine 1+ (Negative); Color Urine Yellow; Epithelial Cell Urine Auto >30 /lpf (0-5); Glucose Urine UA Negative (Negative); Ketones Urine 1+ (Negative); Leukocyte Esterase Urine Negative (Negative); Nitrite Urine Negative (Negative); Protein Urine Trace (Negative); Specific Gravity Urine 1.044 (1.000-1.030); Urobilinogen Urine Negative (Negative)
[2022-06-24 16:15] LABS: Basophils # (auto) 0.04 K/uL (0-0.2); Basophils % (auto) 0.4 %; Eosinophils # (auto) 0.03 K/uL (0-0.50); Eosinophils % (auto) 0.3 %; Hematocrit (blood only) 40.7 % (34.1-44.9); Hemoglobin 13.4 g/dl (12.0-16.0); Immature Granulocytes # (auto) 0.04 K/uL (0.00-0.02); Immature Granulocytes % (auto) 0.4 %; Lymphocytes # (auto) 2.88 K/uL (1.2-3.4); Lymphocytes % (auto) 26.4 %; Mean Corpuscular Hgb Conc 32.9 g/dL (32.0-36.0); Mean Corpuscular Volume 88.1 fL (80.0-100.0); Mean Platelet Volume 11.1 fL (9.4-12.3); Monocytes # (auto) 1.05 K/uL (0.24-0.82); Monocytes % (auto) 9.6 %; Neutrophils # (auto) 6.87 K/uL (1.4-6.5); Neutrophils % (auto) 62.9 %; Platelet Count 254 K/uL (130-400); RDW Standard Deviation 44.8 fL (36.4-46.3); Red Blood Count 4.62 M/uL (3.93-5.22); White Blood Count 10.91 K/ul (4.8-10.8)
[2022-06-24] MEDS ORDERED: SCOPOLAMINE 1 MG TDSY TD SCH (18:45)
[2022-06-24] MEDS ORDERED: CHECK SCOPOLAMINE PATCH PLACEMENT SCH (18:45)
[2022-06-24] MEDS: MoRPHine SULFATE 2 MG/ML CARP IV PRN (20:01)
[2022-06-25] MEDS: CHECK SCOPOLAMINE PATCH PLACEMENT SCH ×2 (00:52→10:02)
[2022-06-25] MEDS: MoRPHine SULFATE 2 MG/ML CARP IV PRN ×6 (06:23→22:04)
[2022-06-25] MEDS: LORazepam 0.5 MG in SYRINGE 0.25 ML IV PRN (10:02)
--- NOTE | 2022-06-25 12:51 | Palliative Care Consultation ---
Date of Consultation June 25, 2022 Assessment & Plan (1) Terminal respiratory secretions: Given restlessness and dementia, she is high risk for delirium on anticholinergics for secretions. Will change scopolamine patch to to glycopyrrolate which does not cross blood brain barrier. Family has been doing oral suction and mouth care. (2) Restlessness: She is relaxed with no facial grimace. She does seem to get more restless about two hours after morphine dose. Will increase dose to 4mg. This may also be terminal delirium, monitor with change in anticholinergics. She does have prn lorazepam. (3) Palliative care encounter: Talked with family at bedside. They asked about prognosis which may be several days. Will monitor but could consider return to [facility] with hospice care if she remains stable. We discussed what to expect as she approaches her dying time. (4) Acute ischemic right MCA stroke: (5) Dementia: History of Present Illness Reason for Consultation: comfort care Attending Physician: Genaro Garcia MD History of Present Illness 81 yo lady with history of afib, diabetes and advanced dementia. She also recently paxlovid for Covid-19 infection in the last ten days. She is a resident at [facility] and was admitted with a large right MCA infarct. CT also showed a small subacute left occiptal infarct as well. Per her daughters, she was able to participate in conversation and was doing ceramic projects at [facility]. They note visible weight loss since covid infection. She is currently resting comfortably. She does have periods of apnea which her daughters say is not new for her. They report that she is restless at times. She does not respond to voice or touch. Allergies Allergy/AdvReac Type Severity Reaction Status Date / Time morphine AdvReac Severe UPSET Verified 06/24/22 16:51 STOMACH codeine AdvReac Mild N/V Verified 06/24/22 16:51 Home Medications Medication Instructions Recorded Confirmed Type Milk Of Magnesia Susp 7.75% 30 ml PO DIRECTED 06/24/22 06/24/22 History acetaminophen 325 mg tablet 650 mg PO AMHS 06/24/22 06/24/22 History (Tylenol) acetaminophen 325 mg tablet 650 mg PO Q6 PRN Fever Or Pain 06/24/22 06/24/22 History (Tylenol) albuterol sulfate 90 mcg/actuation 2 puff inhalation Q6 PRN Shortness 06/24/22 06/24/22 History aerosol inhaler (Ventolin HFA) Of Breath Or Wheezing atorvastatin 10 mg tablet 10 mg PO QPM 06/24/22 06/24/22 History glimepiride 1 mg tablet 1 mg PO DAILY 06/24/22 06/24/22 History losartan 25 mg tablet 25 mg PO DAILY 06/24/22 06/24/22 History metoprolol tartrate 50 mg tablet 50 mg PO BID 06/24/22 06/24/22 History omeprazole 20 mg capsule,delayed 20 mg PO DAILY 06/24/22 06/24/22 History release pregabalin 75 mg capsule 75 mg PO BID 06/24/22 06/24/22 History Patient History Medical History Dementia Diabetes mellitus GERD (gastroesophageal reflux disease) HTN (hypertension), benign Hyperlipidemia Surgical History H/O dilation and curettage H/O: hysterectomy S/P rotator cuff repair Family History Other Family history non-contributory Social History Smoking Status: Unknown if ever smoked Hx Alcohol Use: No Hx Substance Use: No Preferred Language: Serbian Communication Ability: Unable 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 Feels Safe at Home: Yes Assistive Devices: Wheelchair Review of Systems Review of Systems: Unobtainable due to reduced consciousness ESAS Pain by observation 0/3 Dyspnea by observation 0/3 PPS 10% Physical Exam Constitutional: + frail appearing; no acute distress ENMT: Mouth: + dry oral mucous membranes Respiratory: apnea, audible tracheal secretions Cardiovascular: no mottling, no edema Gastrointestinal (Abdomen): soft, nontender Musculoskeletal: Extremities: + muscle atrophy Skin: warm and dry Neurologic: + obtunded Genitourinary: martinez, concentrated urine, 750 cc out on primer charger Results & Data ([facility]) Vital Signs (Past 12 Hours) Vital Signs Temp Pulse Resp BP Pulse Ox O2 Del Method 06/25/22 09:09 Room Air 06/25/22 07:55 98.4 F 138 H 16 117/78 93 PG Care Time/CCT Total # of Minutes Spent Total Time Spent: 47 Total Time Spent with Patient: Total time spent is greater than 50% in coordination of care (as documented) at patient's floor/unit and/or counseling patient: symptom management, family education and support [id number] Coding Level of Care Code 15432 Initial Inpt Care Lvl 1 Diagnoses Terminal respiratory secretions R09.89 Restlessness R45.1 Palliative care encounter Z51.5 Acute ischemic right MCA stroke I63.511 Dementia F03.90
[2022-06-25] MEDS ORDERED: HYOSCYAMINE SULFATE 0.125 MG TAB PO PRN (13:46)
[2022-06-25] MEDS ORDERED: MoRPHine SULFATE 5 MG/0.25 ML UDP PO PRN (13:46)
[2022-06-25] MEDS ORDERED: LORazepam 0.5 MG TAB SL PRN (13:50)
--- NOTE | 2022-06-25 14:22 | Hospitalist Progress Note ---
Date of Service June 25, 2022 Assessment & Plan (1) Acute ischemic stroke: Plan: L hemiplegia/L sided weakness following CVA - Head CT showed a large subacute right MCA territorial infarct, as well as subacute left occipital lobe infarct, head/neck CTA identified a large thrombus occluding the proximal right MCA. - LKW 8 AM this morning. Patient with noted L sided deficits by staff at [facility] this afternoon. - Case, including labs and imaging, was discussed with Dr. Nevarez, the [place] telestroke neurologist; she is out of the window for thrombolytics, and based on the large changes already seen on CT, she would not be a candidate for thrombectomy. - Given patient's age, comorbidities, extent of CVA and deficits--it was discussed with family that patient has a poor prognosis. Her daughter states to me that they have been preparing for something like this to happen, given her severe demtnia, age, and multiple medical issues. Given this and in order to honor patient's wishes, they would like to move to comfort measures only in an effort to keep this patient as comfortable as possible, understanding that further intervention would likely require intubation and would not result in meaningful recovery. - Morphine ordered prn for pain or respiratory distress, Ativan prn for agitation, scopolamine for secretions. -> Reduced morphine dosing time to 2 hours, but RN felt patient was overall comfortable. (2) Comfort measures only status: Plan: As above. (3) Atrial fibrillation with rapid ventricular response: Plan: - Patient presented to ED in A. fib RVR with HR 90-170 = new diagnosis for patient, likely the cause of her b/l vascular territory infarcts. - Defer cardiology consult/further intervention as patient is being transitioned to comfort measures, as above. (4) HTN (hypertension), benign: Plan: - Previous medications include losartan, metoprolol. - D/C these as patient has been moved to comfort measures. (5) Hyperlipidemia: Plan: - Previously on atorvastatin and fenofibrate. - D/C these as patient has been moved to comfort measures. (6) GERD (gastroesophageal reflux disease): Plan: - Previously on omeprazole. - D/C these as patient has been moved to comfort measures. (7) Diabetes mellitus: Plan: - Previously on atorvastatin and fenofibrate. - D/C these, as well as BGS as patient has been moved to comfort measures. (8) Dementia: Plan: - Severe, per patient's family. Plan - Admit to med/surg with comfort measures. Admission and Anticipated Discharge Date Admission Date: June 24, 2022 Subjective Unresponsive today. Review of Systems Review of Systems: Unobtainable due to cognitive status Physical Exam Physical Exam: General: Patient is unresponsive, unable to follow basic commands, appears comfortable Head: Normocephalic, atraumatic ENT: no pharyngeal exudate, mucous membranes moist Chest: Diminished breath sounds throughout without adventitious breath sounds appreciated Cardiac: Irregular rate and rhythm consistent with A. fib; no murmur, no JVD, normal peripheral pulses, good capillary refill Abdominal: NABS x 4 quadrants, soft, nontender to palpation, no rebound, guarding or tenderness Extremities: Normal inspection, no peripheral edema or erythema, calfs nontender to palpation Neuro: Patient is unresponsive, unable to follow basic commands, no movement in left upper or lower extremity, Skin: no rash or erythema Results & Data Results & Data ([facility]) Vital Signs (Past 12 Hours) Vital Signs Temp Pulse Resp BP Pulse Ox O2 Del Method 06/25/22 09:09 Room Air 06/25/22 07:55 36.9 C 138 H 16 117/78 93 PG Care Time/CCT Total # of Minutes Spent Total Time Spent with Patient: Total time spent is greater than 50% in coordination of care (as documented) at patient's floor/unit and/or counseling patient: Coding Level of Care Code 13682 Subseq Hosp Care Lvl 2 Diagnoses Acute ischemic stroke I63.9 Comfort measures only status Z51.5 Atrial fibrillation with rapid ventricular response I48.91 HTN (hypertension), benign I10 Hyperlipidemia E78.5 GERD (gastroesophageal reflux disease) K21.9 Diabetes mellitus E11.9 Dementia F03.90
[2022-06-25] MEDS: GLYCOPYRROLATE 0.2 MG/ML VIAL IV PRN ×2 (16:47→21:36)
[2022-06-26] MEDS: MoRPHine SULFATE 2 MG/ML CARP IV PRN ×10 (00:11→22:29)
--- NOTE | 2022-06-26 09:11 | Hospitalist Progress Note ---
Date of Service June 26, 2022 Assessment & Plan (1) Acute ischemic stroke: Plan: L hemiplegia/L sided weakness following CVA - Head CT showed a large subacute right MCA territorial infarct, as well as subacute left occipital lobe infarct, head/neck CTA identified a large thrombus occluding the proximal right MCA. - LKW 8 AM this morning. Patient with noted L sided deficits by staff at [facility] this afternoon. - Case, including labs and imaging, was discussed with Dr. Nevarez, the [place] telestroke neurologist; she is out of the window for thrombolytics, and based on the large changes already seen on CT, she would not be a candidate for thrombectomy. - Given patient's age, comorbidities, extent of CVA and deficits--it was discussed with family that patient has a poor prognosis. Her daughter states to me that they have been preparing for something like this to happen, given her severe demtnia, age, and multiple medical issues. Given this and in order to honor patient's wishes, they would like to move to comfort measures only in an effort to keep this patient as comfortable as possible, understanding that further intervention would likely require intubation and would not result in meaningful recovery. - Morphine ordered prn for pain or respiratory distress, Ativan prn for agitation, scopolamine for secretions. -> Reduced morphine dosing time to 2 hours. Increased dose as well. Needing periodic doses, but comfortable still. Added Tylenol PRN for fever. (2) Comfort measures only status: Plan: As above. (3) Atrial fibrillation with rapid ventricular response: Plan: - Patient presented to ED in A. fib RVR with HR 90-170 = new diagnosis for patient, likely the cause of her b/l vascular territory infarcts. - Defer cardiology consult/further intervention as patient is being transitioned to comfort measures, as above. (4) HTN (hypertension), benign: Plan: - Previous medications include losartan, metoprolol. - D/C these as patient has been moved to comfort measures. (5) Hyperlipidemia: Plan: - Previously on atorvastatin and fenofibrate. - D/C these as patient has been moved to comfort measures. (6) GERD (gastroesophageal reflux disease): Plan: - Previously on omeprazole. - D/C these as patient has been moved to comfort measures. (7) Diabetes mellitus: Plan: - Previously on atorvastatin and fenofibrate. - D/C these, as well as BGS as patient has been moved to comfort measures. (8) Dementia: Plan: - Severe, per patient's family. Plan - Admit to med/surg with comfort measures. Admission and Anticipated Discharge Date Admission Date: June 24, 2022 Subjective Unresponsive today. Physical Exam Physical Exam: General: Patient is unresponsive, unable to follow basic commands, appears comfortable Head: Normocephalic, atraumatic ENT: no pharyngeal exudate, mucous membranes moist Chest: Diminished breath sounds throughout without adventitious breath sounds appreciated Cardiac: Irregular rate and rhythm consistent with A. fib; no murmur, no JVD, normal peripheral pulses, good capillary refill Abdominal: NABS x 4 quadrants, soft, nontender to palpation, no rebound, guarding or tenderness Extremities: Normal inspection, no peripheral edema or erythema, calfs nontender to palpation Neuro: Patient is unresponsive, unable to follow basic commands, no movement in left upper or lower extremity, Skin: no rash or erythema Results & Data Results & Data ([facility]) Vital Signs (Past 12 Hours) Vital Signs Temp Pulse Resp BP Pulse Ox O2 Del Method 06/26/22 08:44 39.4 C H 06/26/22 07:50 37.0 C 130 H 24 129/74 96 Room Air PG Care Time/CCT Total # of Minutes Spent Total Time Spent with Patient: Total time spent is greater than 50% in coordination of care (as documented) at patient's floor/unit and/or counseling patient: Coding Level of Care Code 45633 Subseq Hosp Care Lvl 2 Diagnoses Acute ischemic stroke I63.9 Comfort measures only status Z51.5 Atrial fibrillation with rapid ventricular response I48.91 HTN (hypertension), benign I10 Hyperlipidemia E78.5 GERD (gastroesophageal reflux disease) K21.9 Diabetes mellitus E11.9 Dementia F03.90
[2022-06-26] MEDS: ACETAMINOPHEN 1,000 MG/100 ML VIAL IV PRN (10:39)
[2022-06-27] MEDS: MoRPHine SULFATE 2 MG/ML CARP IV PRN ×5 (00:36→09:25)
--- NOTE | 2022-06-27 08:02 | Hospitalist Progress Note ---
Date of Service June 27, 2022 Assessment & Plan (1) Acute ischemic stroke: Plan: L hemiplegia/L sided weakness following CVA - Head CT showed a large subacute right MCA territorial infarct, as well as subacute left occipital lobe infarct, head/neck CTA identified a large thrombus occluding the proximal right MCA. - LKW 8 AM this morning. Patient with noted L sided deficits by staff at [facility] this afternoon. - Case, including labs and imaging, was discussed with Dr. Nevarez, the [place] telestroke neurologist; she is out of the window for thrombolytics, and based on the large changes already seen on CT, she would not be a candidate for thrombectomy. - Given patient's age, comorbidities, extent of CVA and deficits--it was discussed with family that patient has a poor prognosis. Her daughter states to me that they have been preparing for something like this to happen, given her severe demtnia, age, and multiple medical issues. Given this and in order to honor patient's wishes, they would like to move to comfort measures only in an effort to keep this patient as comfortable as possible, understanding that further intervention would likely require intubation and would not result in meaningful recovery. - Morphine ordered prn for pain or respiratory distress, Ativan prn for agitation, scopolamine for secretions. -> Reduced morphine dosing time to 2 hours. Increased dose as well. Needing periodic doses, but comfortable still. Added Tylenol PRN for fever. (2) Comfort measures only status: Plan: As above. (3) Atrial fibrillation with rapid ventricular response: Plan: - Patient presented to ED in A. fib RVR with HR 90-170 = new diagnosis for patient, likely the cause of her b/l vascular territory infarcts. - Defer cardiology consult/further intervention as patient is being transitioned to comfort measures, as above. (4) HTN (hypertension), benign: Plan: - Previous medications include losartan, metoprolol. - D/C these as patient has been moved to comfort measures. (5) Hyperlipidemia: Plan: - Previously on atorvastatin and fenofibrate. - D/C these as patient has been moved to comfort measures. (6) GERD (gastroesophageal reflux disease): Plan: - Previously on omeprazole. - D/C these as patient has been moved to comfort measures. (7) Diabetes mellitus: Plan: - Previously on atorvastatin and fenofibrate. - D/C these, as well as BGS as patient has been moved to comfort measures. (8) Dementia: Plan: - Severe, per patient's family. Plan - Admit to med/surg with comfort measures. Admission and Anticipated Discharge Date Admission Date: June 24, 2022 Subjective Patient seen this morning, spoke with daughter Vero, states appears comfortable but that breathing has changed and a little more apneic and more shallow. Discussed can give medication to help with such. She is [facility] her around 11am, will be in wheelchair. Very upset about her roommate dying. Daughter states has some bluish coloration to her left toe, could be body's process/decline/mottling. Demonstrated understanding. Will ask RN to administer dose of Ativan and Tylenol for comfort. Review of Systems Review of Systems: All systems reviewed & are unremarkable except as noted in HPI & below Physical Exam Physical Exam: General: Patient is unresponsive, unable to follow basic commands, appears comfortable although tachypneic with RR 32, does not respond to voice or touch HEENT: Normocephalic, atraumatic ENT: no pharyngeal exudate, mm dry, trachea midline Chest: diminished throughout, tachypneic, no acute distress, not on supplemental oxygen Diminished breath sounds throughout without adventitious breath sounds appreciated Cardiac: Irregular rate and rhythm consistent with A. fib; no murmur, no JVD, normal peripheral pulses, good capillary refill Abdominal: NABS x 4 quadrants, soft, nontender to palpation, no rebound, guarding or tenderness Extremities: Normal inspection, no peripheral edema or erythema, calfs nontender to palpation Neuro: Patient is unresponsive, unable to follow basic commands, no movement in left upper or lower extremity, Skin: no rash or erythema Results & Data Results & Data ([facility]) Vital Signs (Past 12 Hours) Vital Signs Temp Pulse Resp BP Pulse Ox O2 Del Method 06/27/22 07:16 38.4 C H 180 H 32 H 95/65 L 78 L Room Air PG Care Time/CCT Total # of Minutes Spent Total Time Spent with Patient: Total time spent is greater than 50% in coordination of care (as documented) at patient's floor/unit and/or counseling patient: Coding Diagnoses Acute ischemic stroke I63.9 Comfort measures only status Z51.5 Atrial fibrillation with rapid ventricular response I48.91 HTN (hypertension), benign I10 Hyperlipidemia E78.5 GERD (gastroesophageal reflux disease) K21.9 Diabetes mellitus E11.9 Dementia F03.90
[2022-06-27] MEDS: ACETAMINOPHEN 1,000 MG/100 ML VIAL IV PRN (09:59)
[2022-06-27] MEDS: LORazepam 0.5 MG in SYRINGE 0.25 ML IV PRN (09:59)
--- NOTE | 2022-06-27 11:25 | Palliative Care Progress Note ---
Date of Service June 27, 2022 Assessment & Plan (1) Tachypnea: Plan: No significant change with morphine. She is very relaxed and appears comfortable. Suspect this is brain stem driven. Monitor comfort. Continue morphine prn. No indication of morphine toxicity. (2) Terminal respiratory secretions: Plan: None currently. Monitor. Continue prn glycopyrrolate. (3) Fever: Plan: IV tylenol has been ordered. (4) Palliative care encounter: Plan: She appears to be actively dying. Family has been present since admission but went home to rest. Other visitors expected shortly. (5) Acute ischemic right MCA stroke: (6) Dementia: Admission and Anticipated Discharge Date Admission Date: June 24, 2022 Subjective Does not respond to voice or touch. She has had 120mg OME in last 24 hours for tachypnea. Family went home to rest. Review of Systems Review of Systems: Unobtainable due to cognitive status and Unobtainable due to reduced consciousness ESAS Pain AD 0/3 Dyspnea by observation 0/3 PPS 10 Constitutional: febrile Physical Exam Constitutional: no acute distress ENMT: Mouth: + dry oral mucous membranes Respiratory: tachypnea, uses accessory muscles no audible tracheal secretions Cardiovascular: mottling Musculoskeletal: Extremities: + muscle atrophy Skin: warm to touch Neurologic: obtunded no myoclonus Genitourinary: decreased urine output, martinez Results & Data ([facility]) Vital Signs (Past 12 Hours) Vital Signs Temp Pulse Resp BP Pulse Ox O2 Del Method 06/27/22 08:17 Room Air 06/27/22 07:16 101.1 F H 180 H 32 H 95/65 L 78 L PG Care Time/CCT Total # of Minutes Spent Total Time Spent: 26 Total Time Spent with Patient: Total time spent is greater than 50% in coordination of care (as documented) at patient's floor/unit and/or counseling patient: symptom management Coding Level of Care Code 45243 Subseq Hosp Care Lvl 2 Diagnoses Tachypnea R06.82 Terminal respiratory secretions R09.89 Fever R50.9 Palliative care encounter Z51.5 Acute ischemic right MCA stroke I63.511 Dementia F03.90
--- NOTE | 2022-06-27 14:17 | Death Pronouncement Note ---
Date of Service June 27, 2022 Pronouncement Note Admission Date June 24, 2022 Date and Time of Date of : 06/27/22 Time of : 14:27 Preliminary Cause of (1) Acute embolic stroke: Additional Comments: 81yo female presented with acute left sided facial droop and weakness after completing 10 day course of Paxlovid for suspected COVID-19 given positive testing at [facility] 06/15, however ?if false positive given rapid testing subsequent negative Admission with afib with RVR and imaging with acute/subacute RIGHT MCA infarct and subacute subdural lobe infarct. Given progressive dementia at baseline, did not persue aggressive interventions given palliative medicine consultation and decision to focus more on comfort for patient and ordered morphine/ativan/IV tylenol/glycopyrrolate prn Ceased to breath at 1427 (2) Acute ischemic stroke: (3) Atrial fibrillation with rapid ventricular response: (4) Comfort measures only status: (5) HTN (hypertension), benign: (6) Hyperlipidemia: (7) GERD (gastroesophageal reflux disease): (8) Diabetes mellitus: (9) Dementia: Additional Data Confirmation of : no pulse, no respirations, no heart sounds and pupils fixed and dilated Pronouncement Performed By: Nursing Family: at bedside and contacted (also contacted varun Pham by phone ) Additional persons at bedside: other (grandson) Attending/PCP notified?: Yes Attending physician: Te Robles Was code activated?: No Autopsy requested?: No sock examiner notified?: No Organ bank notified?: Yes Advance directives: No
--- NOTE | 2022-06-27 14:17 | Discharge Summary ---
Date of Service June 27, 2022 Admission HPI Per Admitting Provider Marlene Mendoza is an 81-year-old female with a past medical history significant for DM2, hyperlipidemia, hypertension, dementia, and GERD who presents today from [facility] via EMS as a stroke alert. Patient was seen at 8 AM in her normal state of health, however when she was checked on this afternoon she was having left-sided facial droop and weakness. On arrival, patient is unresponsive and unable to follow commands. Over the weekend, she had been having periods of apnea, and has been treated for the past 10 days for COVID19, receiving Paxlovid. Otherwise, she does have severe dementia at baseline, aj arvizu has previously been able to ambulate with assistance. Upon presentation, patient presented with HR 146, found to be in A. fib RVR on EKG. Head CT shows a large subacute right MCA territory infarct, as well as subacute left subdural lobe infarct, no hemorrhage or midline shift identified. Head and neck CTA revealed a large thrombus occluding the proximal right MCA with <50% luminal narrowing of the right RCA. Admission Exam Per Admitting Provider General: Patient is unresponsive, unable to follow basic commands, appears comfortable Head: Normocephalic, atraumatic ENT: PERRL, no pharyngeal exudate, mucous membranes moist Chest: Diminished breath sounds throughout without adventitious breath sounds appreciated Cardiac: Irregular rate and rhythm consistent with A. fib; no murmur, no JVD, normal peripheral pulses, good capillary refill Abdominal: NABS x 4 quadrants, soft, nontender to palpation, no rebound, guarding or tenderness Extremities: Normal inspection, no peripheral edema or erythema, calfs nontender to palpation Neuro: Patient is unresponsive, unable to follow basic commands, no movement in left upper or lower extremity, Skin: no rash or erythema Principal Diagnosis Acute Embolic CVA, New Afib RVR Discharge Exam Patient laying in hospital bed, unresponsive, pupils fixed and dilated, no spontaneous breathing, no heart sounds, does not respond to voice/touch, mottling of extremities Son and grandson at bedside Discharge Data Allergies Allergy/AdvReac Type Severity Reaction Status Date / Time morphine AdvReac Severe UPSET Verified 06/24/22 16:51 STOMACH codeine AdvReac Mild N/V Verified 06/24/22 16:51 Consultations 06/24/22 15:36 ED Decision to Admit Stat 06/24/22 18:38 Consult Palliative Care Routine Ordered Studies Chest X-Ray 06/24/22 14:31 SINGLE VIEW CHEST CLINICAL HISTORY: Stroke FINDINGS: An AP, portable, semierect chest radiograph is compared to study dated 03/31/2021. The examination is degraded by portable technique and patient rotation. The heart is mildly enlarged noting atherosclerotic calcification of the thoracic aorta. The pulmonary vasculature is noncongested. Chronic interstitial thickening similar to previous. Scarring/atelectasis is noted at the lung bases. The lungs and pleural spaces are otherwise clear. No pneumothorax is seen. The skeletal structures are osteopenic. The bony thorax is grossly intact. Arthritic change is seen in the shoulders. IMPRESSION: Cardiomegaly with no acute cardiopulmonary abnormality identified. ACT 112: Negative or not required by law. Electronically signed by: Andrew Cummins M.D. 06/24/2022 3:[address] 06/24/22 14:31 CT SCAN OF THE BRAIN WITHOUT IV CONTRAST CLINICAL HISTORY: Strokelike symptoms. COMPARISON STUDY: CT of the brain dated 03/31/2021. TECHNIQUE: Unenhanced axial CT scan of the brain is performed from the vertex to the skull base. A dose lowering technique was utilized adhering to the principles of ALARA. FINDINGS: Brain parenchyma: There is diffuse loss of vee-white matter differentiation seen throughout the right MCA territory consistent with a large subacute infarct. There is associated edema with effacement of the overlying cortical sulci. There is also a subacute infarct in the left occipital lobe. There is age-related involutional change noting mild to moderate subcortical and periventricular microangiopathic disease. There is no hemorrhage or midline shift. No extra-axial fluid collection is seen. Ventricles, sulci, cisterns: Prominent secondary to involutional change. Intracranial vasculature: There is atherosclerotic calcification of the cavernous carotid arteries.. Calvarium: Unremarkable. Sinuses and mastoids: There is trace mucosal thickening within the maxillary antra. The remaining paranasal sinuses are clear. The mastoid air cells are well pneumatized. Orbits: The bony orbits are grossly intact. There is a left ocular lens implant. IMPRESSION: 1. Large subacute right MCA territory infarct. 2. There is also a subacute left occipital lobe infarct. 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 3. No hemorrhage or midline shift is identified. ACT 112: Negative or not required by law. Electronically signed by: Andrew Cummins M.D. 06/24/2022 2:47 PM Head CTA 06/24/22 14:31 CT ANGIOGRAM OF THE BRAIN; CT ANGIOGRAM OF THE NECK CLINICAL HISTORY: Stroke COMPARISON STUDY: Unenhanced CT of the brain performed concurrently on 06/24/2022. TECHNIQUE: Following the IV administration of 109 of Optiray 320, CT angiogram of the head and neck was performed from the aortic arch to the vertex. Images are reviewed in the axial, sagittal, and coronal planes. 3-D MIPS images are created and assessed. IV contrast was administered without complication. All measurements were calculated based on NASCET criteria. A dose lowering technique was utilized adhering to the principles of ALARA. CT DOSE: 1308.46 mGy.cm FINDINGS: Brain parenchyma: There is extensive loss of vee-white matter differentiation throughout the right MCA territory indicating subacute ischemia. There is edema with effacement of the overlying cortical sulci. There is also a subacute stroke involving the left occipital lobe. No hemorrhage or midline shift is identified. There is no evidence of enhancing mass lesion on the angiogram phase images. The ventricles, sulci, and cisterns are prominent secondary to involutional change. There is age-related involutional change noting [id number] subcortical and periventricular microangiopathic disease. No extra-axial fluid collection is seen. Thoracic aorta: There is atherosclerotic calcification of the thoracic aorta. Visualized portions of the thoracic aorta are normal in caliber. The aortic arch demonstrates standard 3-vessel anatomy. Right carotid arterial system: The right common carotid artery is patent, as are the right internal and external carotid arteries. Advanced calcified plaque in the carotid bulb causes less than 50% luminal narrowing at the origin of the right internal carotid artery. Left carotid arterial system: The left common carotid artery is widely patent, as are the left internal and external carotid arteries. Calcified plaque is noted in the carotid bulb. Vertebral arteries: The vertebral arteries are widely patent bilaterally noting left-sided dominance. Subclavian arteries: Widely patent bilaterally. Intracranial vasculature: The internal carotid arteries are patent at the skull base, as are the anterior and left middle cerebral arteries bilaterally. There is a large thrombus within the proximal right middle cerebral artery, best seen on axial image #153. The vertebrobasilar system and posterior cerebral arteries are widely patent. The left vertebral artery is dominant. The right vertebral artery at the skull base is diminutive. There is a right posterior communicating artery. There no aneurysm identified. Jugular veins: Patent bilaterally. Dural sinuses: Patent. Lung apices: Calcified granulomas are noted in the right upper lobe. Upper lobe lung parenchyma is otherwise clear as imaged. Soft tissues: The visualized pharyngeal soft tissues are normal in appearance noting angiographic phase technique. The oropharyngeal airway appears widely pa tent. The thyroid gland is heterogeneous. The salivary glands are normal in appearance. No cervical lymphadenopathy is seen. Skeletal structures: The skeletal structures are osteopenic. The calvarium appears intact. The cervical spine is maintained noting multilevel spondylosis. No lytic or blastic lesion is seen. Orbits: The bony orbits are intact. Orbital contents are normal as visualized no ting a left ocular lens implant. Sinuses and mastoids: Trace mucosal thickening is noted in the maxillary antra. The remaining paranasal sinuses are clear. The mastoid air cells are well pneumatized. IMPRESSION: 1. There is a large subacute right MCA territory infarct. 2. There is also a small subacute left occipital infarct. 3. 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 The remaining intracranial vessels are patent. 5. Atherosclerotic plaque causes less than 50% luminal narrowing at the origin of the right ICA. 6. Otherwise unremarkable CT angiogram of the neck. 7. There is no hemorrhage or midline shift. ACT 112: Negative or not required by law. Electronically signed by: Andrew Cummins M.D. 06/24/2022 2:59 PM Neck CTA 06/24/22 14:31 CT ANGIOGRAM OF THE BRAIN; CT ANGIOGRAM OF THE NECK CLINICAL HISTORY: Stroke COMPARISON STUDY: Unenhanced CT of the brain performed concurrently on 06/24/2022. TECHNIQUE: Following the IV administration of 109 of Optiray 320, CT angiogram of the head and neck was performed from the aortic arch to the vertex. Images are reviewed in the axial, sagittal, and coronal planes. 3-D MIPS images are created and assessed. IV contrast was administered without complication. All measurements were calculated based on NASCET criteria. A dose lowering tech nique was utilized adhering to the principles of ALARA. CT DOSE: 1308.46 mGy.cm FINDINGS: Brain parenchyma: There is extensive loss of vee-white matter differentiation throughout the right MCA territory indicating subacute ischemia. There is edema with effacement of the overlying cortical sulci. There is also a subacute stroke involving the left occipital lobe. No hemorrhage or midline shift is identified. There is no evidence of enhancing mass lesion on the angiogram phase images. The ventricles, sulci, and cisterns are prominent secondary to involutional change. There is age-related involutional change noting [id number] subcortical and periventricular microangiopathic disease. No extra-axial fluid collection is seen. Thoracic aorta: There is atherosclerotic calcification of the thoracic aorta. Visualized portions of the thoracic aorta are normal in caliber. The aortic arch demonstrates standard 3-vessel anatomy. Right carotid arterial system: The right common carotid artery is patent, as are the right internal and external carotid arteries. Advanced calcified plaque in the carotid bulb causes less than 50% luminal narrowing at the origin of the right internal carotid artery. Left carotid arterial system: The left common carotid artery is widely patent, as are the left internal and external carotid arteries. Calcified plaque is noted in the carotid bulb. Vertebral arteries: The vertebral arteries are widely patent bilaterally noting left-sided dominance. Subclavian arteries: Widely patent bilaterally. Intracranial vasculature: The internal carotid arteries are patent at the skull base, as are the anterior and left middle cerebral arteries bilaterally. There is a large thrombus within the proximal right middle cerebral artery, best seen on axial image #153. The vertebrobasilar system and posterior cerebral arteries are widely patent. The left vertebral artery is dominant. The right vertebral artery at the skull base is diminutive. There is a right posterior communicating artery. There no aneurysm identified. Jugular veins: Patent bilaterally. Dural sinuses: Patent. Lung apices: Calcified granulomas are noted in the right upper lobe. Upper lobe lung parenchyma is otherwise clear as imaged. Soft tissues: The visualized pharyngeal soft tissues are normal in appearance noting angiographic phase technique. The oropharyngeal airway appears widely patent. The thyroid gland is heterogeneous. The salivary glands are normal in appearance. No cervical lymphadenopathy is seen. Skeletal structures: The skeletal structures are osteopenic. The calvarium appears intact. The cervical spine is maintained noting multilevel spondylosis. No lytic or blastic lesion is seen. Orbits: The bony orbits are intact. Orbital contents are normal as visualized noting a left ocular lens implant. Sinuses and mastoids: Trace mucosal thickening is noted in the maxillary antra. The remaining paranasal sinuses are clear. The mastoid air cells are well pneumatized. IMPRESSION: 1. There is a large subacute right MCA territory infarct. 2. There is also a small subacute left occipital infarct. 3. 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 The remaining intracranial vessels are patent. 5. Atherosclerotic plaque causes less than 50% luminal narrowing at the origin of the right ICA. 6. Otherwise unremarkable CT angiogram of the neck. 7. There is no hemorrhage or midline shift. ACT 112: Negative or not required by law. Electronically signed by: Andrew Cummins M.D. 06/24/2022 2:59 PM Hospital Course (1) Acute embolic stroke: Patient admitted from [facility] after receiving 10 days treatment for +CoVID testing with new onset afib with RVR after being brought in for left sided facial droop and weakness and found to have large thrombus occlusing proximal right middle cerebral artery with large subacute right MCA territory infarct and subacute left occipital lobe infarct involving bilateral vascular territories suggestive of an embolic phenomenon. Case discussed with Tessa telestroke and NOT candidate for thrombectomy Given patient's age, comorbidities, extent of CVA and deficits--it was discussed with family that patient has a poor prognosis. Her daughter states to me that they have been preparing for something like this to happen, given her severe demtnia, age, and multiple medical issues. Given this and in order to honor patient's wishes, they would like to move to comfort measures only in an effort to keep this patient as comfortable as possible, understanding that further intervention would likely require intubation and would not result in meaningful recovery. Consultation with family and palliative medicine in patient with severe dementia at baseline and decision was made not to pursue aggressive measures and to move forward with comfort measures only and received IV morphine, ativan, tylenol and medications for secretions ordered as needed Arrangements made for lifelong roommate Tonja to visit from [facility] (testing negative prior to being brought in) to visit and shortly thereafter patient ceased to breath at 14:27 on 06/27/22. Son at bedside with grandson, daughter Vero updated by phone (2) COVID-19: Diagnosed with such at [facility] prior to admission. Had previously been treated with antiviral therapy as outpatient (Glorialovid). CXR here without pneumonia. Certainly would have enhanced her stroke risk given known hypercoagulability associated with COVID infection. (3) Atrial fibrillation with rapid ventricular response: New diagnosis on admission but unclear if possibly had earlier in the year with hospitalization for syncope, however recent COVID 19 testing and treatment could have put at increased risk for arrhythmias (4) Acute ischemic stroke: (5) Comfort measures only status: (6) HTN (hypertension), benign: (7) Hyperlipidemia: (8) GERD (gastroesophageal reflux disease): (9) Diabetes mellitus: (10) Dementia: (11) Fever: tylenol prn, likely from emboli causing above (12) Tachypnea: Total Time Total Time Spent Total Time Spent (In Minutes): 45 Discharge Plan Discharge Items Patient Disposition: Other Date/Time: 06/27/22 14:27 Supervising Physician Co-Signing Physician Notes Attending Attestation - I agree with the discharge/ summary as outlined by KAYODE Benavidez. Te Robles MD Coding Level of Care Code D/C DAY MANAGEMENT >30 MINS Diagnoses Acute embolic stroke I63.9 COVID-19 U07.1 Atrial fibrillation with rapid ventricular response I48.91 Acute ischemic stroke I63.9 Comfort measures only status Z51.5 HTN (hypertension), benign I10 Hyperlipidemia E78.5 GERD (gastroesophageal reflux disease) K21.9 Diabetes mellitus E11.9 Dementia F03.90 Fever R50.9 Tachypnea R06.82
== END 2022-06-27 16:15 | disposition expired | DRG 65 ==
LOC: ED 14:35 → SUATTDRO 16:12 → EDINP 16:12 → 3E 18:41
DX: Z51.5 Encounter for palliative care; Z66 Do not resuscitate; I48.91 Unspecified atrial fibrillation; I10 Essential (primary) hypertension; R29.810 Facial weakness; I63.511 Cerebral infarction due to unspecified occlusion or stenosis of right middle cerebral artery; F03.90 Unspecified dementia, unspecified severity, without behavioral disturbance, psychotic disturbance, mood disturbance, and anxiety; E78.5 Hyperlipidemia, unspecified; E11.9 Type 2 diabetes mellitus without complications; Z86.16 Personal history of COVID-19; K21.9 Gastro-esophageal reflux disease without esophagitis; I63.411 Cerebral infarction due to embolism of right middle cerebral artery; G81.94 Hemiplegia, unspecified affecting left nondominant side; Z88.5 Allergy status to narcotic agent